=== PATIENT | female | born 1960 | race Caucasian/White ===

== ENCOUNTER 2022-11-19 10:15 | Outpatient (REF) | payer OTHER, SELFPAY ==
--- NOTE | ~2022-11-19 | XR_ITS ---
EXAMINATION: XR SACROILIAC JOINTS CLINICAL INFORMATION: Lumbar spondylosis without myelopathy or radiculopathy. COMPARISON: None available. TECHNIQUE: AP and bilateral Judet views of the sacroiliac joints FINDINGS: Bones and soft tissues are normal. No fracture. Alignment is anatomic. Sacroiliac joint spaces are well-maintained without erosions or surrounding sclerosis. XR/XR sacroiliac joint min 3V IMPRESSION: Normal sacroiliac joints.
--- NOTE | ~2022-11-19 | XR_ITS ---
EXAMINATION: XR LUMBOSACRAL SPINE WITH OBLIQUES CLINICAL INFORMATION: Lumbar spondylosis, without myelopathy or radiculopathy. COMPARISON: None available. TECHNIQUE: AP, both oblique, and lateral (neutral, flexion and extension) views of the lumbar spine. Lateral view of the lumbosacral junction. FINDINGS: There is bony demineralization. As a slight thoracolumbar dextroscoliosis. At L5-S1, there is moderate disc space narrowing, vacuum disc phenomenon and a 3 mm retrolisthesis. The remaining disc spaces are relatively well-maintained. No acute fracture or spondylolisthesis is seen. There is no significant instability with flexion or extension. There is facet arthropathy at L5-S1. No spondylolysis defect is seen on the oblique views. The paravertebral soft tissues are unremarkable. XR/XR lumbar spine 6V w bending IMPRESSION: 1. At L5-S1, there is moderately severe degenerative disc disease and facet arthropathy. 2. There is no instability with flexion or extension.
== END 2022-11-19 10:16 | disposition home or self-care (01) ==
LOC: HO.XRAY 10:15
PROVIDERS: PCP Nurse Practitioner Family; Visit Provider Nurse Practitioner Family
DX: M47.816 Spondylosis without myelopathy or radiculopathy, lumbar region (principal); M53.3 Sacrococcygeal disorders, not elsewhere classified
CPT/HCPCS: 72114; 72202; 99202

== ENCOUNTER 2022-12-04 06:09 | Outpatient (REF) | payer OTHER, SELFPAY ==
--- NOTE | ~2022-12-04 | FL_ITS ---
EXAMINATION: XR FLUOROSCOPY WITH IMAGES CLINICAL INFORMATION: Spondylosis without myelopathy or radiculopathy, lumbar region. COMPARISON: None available. TECHNIQUE: Fluoroscopy Supervised By: Dr. Elkisn. Fluoroscopy Time: 0.3 minutes. Cumulative Dose: 12.2 mGy. DAP: 1.77 Gycm2. Images: 5. FINDINGS: Images demonstrate needle placement and contrast injection adjacent to the bilateral lateral L3, L4 and L5 vertebral bodies. FL/FL guidance in treatment room IMPRESSION: Fluoroscopy guidance for pain management procedure.
== END 2022-12-04 06:10 | disposition home or self-care (01) ==
LOC: CF 06:09
PROVIDERS: Visit Provider Internal Medicine
DX: M47.816 Spondylosis without myelopathy or radiculopathy, lumbar region (principal)
CPT/HCPCS: 64493; 64494

== ENCOUNTER → 2022-12-09 15:42 | Outpatient (BNVA) | payer OTHER, SELFPAY | PROVIDERS: PCP Nurse Practitioner Family; Visit Provider Nurse Practitioner Family | DX: M47.816 Spondylosis without myelopathy or radiculopathy, lumbar region (principal); M53.3 Sacrococcygeal disorders, not elsewhere classified; M54.16 Radiculopathy, lumbar region | CPT/HCPCS: 99212 ==

== ENCOUNTER 2023-01-15 10:48 | Day surgery (SDC) | payer OTHER, SELFPAY ==
--- NOTE | ~2023-01-15 | FL_ITS ---
EXAMINATION: XR FLUOROSCOPY WITH IMAGES CLINICAL INFORMATION: Lumbar pain. COMPARISON: None available. TECHNIQUE: Fluoroscopy Supervised By: Dr. Aba Elkins. Fluoroscopy Time: 0.1. Cumulative Dose: 2.21 mGy. DAP: 0.175 Gycm2. Images: 1. FINDINGS: A single digital image obtained reveals a single electrode or wire overlying the L4 and L5 vertebra. Visualized bones are grossly unremarkable. FL/FL guidance in OR IMPRESSION: Fluoroscopy was provided to referring physician for pain management.
[2023-01-15 11:02] VITALS: BMI 29.2
[2023-01-15 11:11] VITALS: BP 138/69; PULSE 55; RESP 16; TEMP 36.5; O2SAT 96
[2023-01-15 13:16] VITALS: BP 139/68; PULSE 59; RESP 18; TEMP 36.5; O2SAT 100
--- NOTE | 2023-01-15 15:50 | MHC.SHP ---
Pre-Procedural Eval Section A Date of Service: 01/15/23 The patient is an INPATIENT: No Changes since office visit: Yes Patient answered all questions The History & Physical has been completed within 30 days and I have reviewed it.: Yes Section B Chief Complaint: Spondylosis without myelopathy or radiculopathy Relevant Family History (Specify if Yes): No Relevant Social History: None Present Medications: see Short Stay Collaborative assessment Medical History: No relevant PMH History of Previous Operations: No relevant previous surgery Allergies: Allergies Allergy/AdvReac Type Severity Reaction Status Date / Time No Known Allergies Allergy Mild NKA Verified 12/09/22 15:58 Review of Systems Sugical H&P ROS: Negative: Constitution, Cardiovascular and Respiratory Exam Surgical H&P Exam: Normal: HEENT, Normal: Heart and Normal: Lungs Plan Diagnosis/Plan: Unchanged I have reviewed the history and physical and performed a pertinent physical examination on my patient. No changes have occurred unless specified. Proceed with left L3 medial branch nerve stimulator placement. Time Spent With Patient Time: Total time managing care of this patient today ____ minutes.
--- NOTE | 2023-01-15 15:51 | PM.OP ---
Brief Operative Note Date of Service: 01/15/23 Pre-op diagnosis: Lumbar spondylosis, chronic intractable low back pain Post-op diagnosis: same Procedure: Temporary left L3 medial branch nerve stimulator placement Implants: Sprint temporary PNS system Surgeon: Aba Elkins MD Anesthesia: local Was an Oracle Technical Architect used for this Procedure?: No Estimated blood loss (mL): 1 Pathology: none sent Condition: stable Disposition: same day
--- NOTE | 2023-01-15 15:52 | W.PM.OPN ---
Operative Note Operative Note Date of Service: 01/15/23 Narrative: Lumbar Medial Branch Nerve Stimulation Lead Placement, SPR (Sprint) System, Left L3 ? After the risks, benefits and alternatives were discussed with the patient and informed consent was obtained, patient was placed in the prone position and padded to foster comfort. The skin overlying the lumbosacral spine was prepped and draped in sterile fashion. Fluoroscopy was used to identify the spinous process and lamina in the center of the patient?s region of pain. After identifying and marking the intended target along the course of the medial branch nerve, the skin around the planned entry point and the subcutaneous tissues were injected with lidocaine 1%. An introducer needle and stimulating probe were assembled, inserted and advanced along the intended course of the medial branch nerve as it traverses the lamina medial and inferior to the zygapophyseal joint, taking care to maintain the proper depth of insertion as the introducer is advanced under fluoroscopic guidance. The introducer needle was delivered to a location in proximity to the nerve. Multiple stimulation parameters were used to deliver stimulation to the target medial branch nerve in concert with stimulating at multiple positions around the nerve. Nerve target acquisition was confirmed noting generation of paresthesias in the paravertebral regions corresponding to the level being stimulated. Various electrical parameter combinations were tested, and the lead location was adjusted (physically relocated) until the patient indicated paresthesia/muscle tension overlapping the distribution of the patient?s typical region of pain. The stimulating probe was removed from the introducer and a percutaneous lead was guided through the needle and delivered to a location in similar proximity to the nerve. Final location was verified with electrical stimulation and documented with fluoroscopy. The introducer needle was removed, and the exposed end of the percutaneous lead was attached to an external stimulator unit. Various electrical parameter combinations were again tested until the patient indicated paresthesia or muscle tension overlapping the distribution of the patient?s typical region of pain. After confirming that lead impedance was in the normal range, the external unit was detached, the needle was removed, and the lead was anchored at the skin. The lead was threaded into the connector block and electrical continuity and desired patient response was confirmed. The connector block was attached to the external stimulator unit. The site was covered with a sterile occlusive dressing. The patient was observed for stability of vital signs and comfort.
== END 2023-01-15 13:21 | disposition home or self-care (01) ==
PROVIDERS: PCP Nurse Practitioner Family; Visit Provider Internal Medicine
PROC: (CPT 64555; principal; 2023-01-15 12:10)
DX: M47.26 Other spondylosis with radiculopathy, lumbar region (principal); M53.3 Sacrococcygeal disorders, not elsewhere classified
CPT/HCPCS: 64555; C1778

== ENCOUNTER → 2023-01-15 10:48 | Outpatient (BNV) | payer OTHER, SELFPAY | PROVIDERS: PCP Nurse Practitioner Family; Visit Provider Internal Medicine | DX: M47.816 Spondylosis without myelopathy or radiculopathy, lumbar region (principal) | CPT/HCPCS: 64555; 99499 ==

== ENCOUNTER → 2023-01-24 10:45 | Outpatient (BNVA) | payer OTHER, SELFPAY | PROVIDERS: PCP Nurse Practitioner Family; Visit Provider Internal Medicine ==

== ENCOUNTER 2023-02-06 08:49 | Outpatient (AMB) | payer OTHER, SELFPAY ==
--- NOTE | 2023-02-06 08:57 | MHC.OFFVIS ---
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 Elkins. Lead site clean, dry, intact, no pathological discharge. Dressing change done today in clinic. Pain today 09/06. She is scheduled to undergo right side Sprint lead placement on 03/05/23 and reports since left side was done, her right sided back pain has been feeling partially better as well. Denies any recent cough, cold, infection, fever or other significant changes in medical history since last office visit. Patient denies any bladder or bowel incontinence or saddle anesthesia. Past Procedures: 01/15/23: Left L3 MB Sprint lead [id number] pain relief at 60 with positive paresthesia 12/04/22: Bilateral Diagnostic L3-L4-L5 [id number]% pain relief for 24 hours PRIOR: Patient is a very pleasant 62-year-old presents today for initial evaluation of chronic low back pain extending into posterior bilateral lower extremity. Denies any recent trauma, injury, or falls. Patient reports pain initiated upon waking up on and 2018 with right-sided sciatica and over a year she also developed left-sided sciatica pain. Patient was followed at [facility] for the last 3 years and has undergone multiple injections for back and hip pain with minimal and temporary pain relief. She was deemed a good candidate for a spinal cord stimulator however per referral notes, her thoracic spine MRI revealed a thoracic canal is too narrow to accommodate the lead wires. Therefore she is no longer considered a candidate for a spinal cord stimulator trial. Patient has failed multiple modes of conservative management at the [facility] including physical therapy, injections, medications, acupuncture and massage. Patient reports she was also had [place] [facility] [place] was deemed non-surgical. She was referred to us for potential peripheral nerve stimulation for her ongoing symptoms. Currently, she takes gabapentin and duloxetine which both are ineffective to her. Pain continues to affect her daily ADLs, functioning, mobility, sleep, mood and quality of life. She ambulates with mildly antalgic gait without limping and does not use any assistive devices. Denies any fever, abdominal or groin pain, bladder or bowel incontinence, or saddle anesthesia. Location Low back pain, bilateral sciatica, bilateral hip and GTB Duration Chronic pain since 2019 Characteristics of symptom or complaint Throbbing, pulsing, sharp, tugging, burning, tiring, radiating, tight Aggravating or associated factors Bending, pulling lifting, walking, sitting, standing Relieving factors Tylenol, oxycodone, TENS unit, massage Treatment PT, acupuncture, nerve blocks and epidurals at [facility] Medical History Fibromyalgia Intussusception intestine Kidney stone Seizure Surgical History H/O myomectomy H/O partial thyroidectomy H/O: hysterectomy Social History Patient Tobacco Use Status: Former Tobacco user Substance Use Type: Marijuana Review of Systems Const All systems reviewed & are unremarkable except as noted in HPI and below Physical Exam Vital Signs: Last Vital Signs Pulse 54 02/06/23 09:08 BP 119/68 02/06/23 09:08 Pulse Ox 97 02/06/23 09:08 Oxygen Delivery Method Room Air 02/06/23 09:08 BMI result Body Mass Index 29.2 General: Appears afebrile. Alert and oriented. Mood and affect appropriate. Follows and participates in conversation appropriately. Respiratory effort is unlabored. No cough. No nasal discharge. Able to transition from sit to stand unassisted. Ambulates with bilaterally normal heel strike and toe off. Back/Spine/Pelvis Other: Lead Insertion Site: Positive paresthesia around left lower back at 60. Lead insertion site is clean, dry and intact. Dressing change today. Results Reviewed Results Reviewed: XR SACROILIAC JOINTS 11/19/22 TECHNIQUE: AP and bilateral Judet views of the sacroiliac joints FINDINGS: Bones and soft tissues are normal. No fracture. Alignment is anatomic. Sacroiliac joint spaces are well-maintained without erosions or surrounding sclerosis. IMPRESSION: Normal sacroiliac joints. XR LUMBOSACRAL SPINE WITH OBLIQUES 11/19/22 FINDINGS: There is bony demineralization. As a slight thoracolumbar dextroscoliosis. At L5-S1, there is moderate disc space narrowing, vacuum disc phenomenon and a 3 mm retrolisthesis. The remaining disc spaces are relatively well-maintained. No acute fracture or spondylolisthesis is seen. There is no significant instability with flexion or extension. There is facet arthropathy at L5-S1. No spondylolysis defect is seen on the oblique views. The paravertebral soft tissues are unremarkable. IMPRESSION: 1. At L5-S1, there is moderately severe degenerative disc disease and facet arthropathy. 2. There is no instability with flexion or extension. Assessment & Plan Assessment & Plan (1) Lumbar spondylosis: Code(s): M47.816 - Spondylosis without myelopathy or radiculopathy, lumbar region (2) Sacroiliac joint pain: Code(s): M53.3 - Sacrococcygeal disorders, not elsewhere classified Plan Patient is status post Left L3 Sprint PNS for low back pain with good results at 60 stimulation with positive paresthesia on left low back. Patient will continue to slowly increase stimulation as tolerated and monitor pain relief. Dressing was changed in the clinic today. Proceed with Right L3 Medial Branch Nerve Stimulation Lead Placement, Sprint system as scheduled. All questions were answered and the patient agreed with the plan. Follow up as needed. Coding Level of Care Code Est Pt Level 3 (26303) Diagnoses Lumbar spondylosis M47.816 Sacroiliac joint pain M53.3
[2023-02-06 09:08] VITALS: BP 119/68; PULSE 54; O2SAT 97; BMI 29.2
== END 2023-02-06 09:21 | disposition home or self-care (01) ==
PROVIDERS: PCP Nurse Practitioner Family; Visit Provider Nurse Practitioner Family
DX: M47.816 Spondylosis without myelopathy or radiculopathy, lumbar region (principal); M53.3 Sacrococcygeal disorders, not elsewhere classified; Z96.82 Presence of neurostimulator
CPT/HCPCS: 99213

== ENCOUNTER → 2023-02-06 08:49 | Outpatient (BNVA) | payer OTHER, SELFPAY | PROVIDERS: PCP Nurse Practitioner Family; Visit Provider Nurse Practitioner Family ==

== ENCOUNTER 2023-03-05 09:20 | Day surgery (SDC) | payer OTHER, SELFPAY ==
--- NOTE | ~2023-03-05 | FL_ITS ---
EXAMINATION: XR FLUOROSCOPY WITH IMAGES CLINICAL INFORMATION: Right lumbar medial branch block COMPARISON: 01/15/2023 TECHNIQUE: Fluoroscopy Supervised By: Dr. Aba Elkins. Fluoroscopy Time: 0.1 minutes. Cumulative Dose: 2.1 mGy. DAP: 0.0170 Gycm2. Images: 4. FINDINGS: A radiopaque needle projects along the right aspect of the lumbar spine. Projects posteriorly. There is a second needle more inferiorly on the left. FL/FL guidance in OR IMPRESSION: Fluoroscopic guidance for right lumbar medial branch block.
[2023-03-05 09:39] VITALS: BMI 29.2
[2023-03-05 09:45] VITALS: BP 113/62; PULSE 66; RESP 16; TEMP 36.8; O2SAT 97
--- NOTE | 2023-03-05 11:21 | MHC.SHP ---
Pre-Procedural Eval Section A Date of Service: 03/05/23 The patient is an INPATIENT: No Changes since office visit: Yes Patient answered all questions The History & Physical has been completed within 30 days and I have reviewed it.: No Section B Chief Complaint: Intractable back pain Relevant Family History (Specify if Yes): No Relevant Social History: None Present Medications: see Short Stay Collaborative assessment Medical History: No relevant PMH History of Previous Operations: No relevant previous surgery Allergies: Allergies Allergy/AdvReac Type Severity Reaction Status Date / Time No Known Allergies Allergy Mild NKA Verified 03/05/23 09:38 Review of Systems Sugical H&P ROS: Negative: Constitution, Cardiovascular and Respiratory Exam Surgical H&P Exam: Normal: HEENT, Normal: Heart and Normal: Lungs Plan Diagnosis/Plan: Unchanged I have reviewed the history and physical and performed a pertinent physical examination on my patient. No changes have occurred unless specified. Proceed with right L3 vs. L4 vs. L5 MB nerve PNS placement. Time Spent With Patient Time: Total time managing care of this patient today ____ minutes.
[2023-03-05 12:00] VITALS: BP 119/64; PULSE 58; RESP 16; TEMP 36.3; O2SAT 98
--- NOTE | 2023-03-05 12:11 | PM.OP ---
Brief Operative Note Date of Service: 03/05/23 Pre-op diagnosis: Chronic intractable pain, lumbar spondylosis Post-op diagnosis: same Procedure: Temporary right L3 medial branch nerve stimulator placement Implants: Sprint temporary PNS system Surgeon: Aba Elkins MD Anesthesia: local Was an Motor Equipment Commanding Officer used for this Procedure?: No Estimated blood loss (mL): 1 Pathology: none sent Condition: stable Disposition: same day
[2023-03-05] MEDS: oxyCODONE HCl Immed Release 5 MG TABLET PO (12:14)
--- NOTE | 2023-03-05 12:14 | W.PM.OPN ---
Operative Note Operative Note Date of Service: 03/05/23 Narrative: Lumbar Medial Branch Nerve Stimulation Lead Placement, SPR (Sprint) System, Right L3 ? After the risks, benefits and alternatives were discussed with the patient and informed consent was obtained, patient was placed in the prone position and padded to foster comfort. The skin overlying the lumbosacral spine was prepped and draped in sterile fashion. Fluoroscopy was used to identify the spinous process and lamina in the center of the patient?s region of pain. After identifying and marking the intended target along the course of the medial branch nerve, the skin around the planned entry point and the subcutaneous tissues were injected with lidocaine 1%. An introducer needle and stimulating probe were assembled, inserted and advanced along the intended course of the medial branch nerve as it traverses the lamina medial and inferior to the zygapophyseal joint, taking care to maintain the proper depth of insertion as the introducer is advanced under fluoroscopic guidance. The introducer needle was delivered to a location in proximity to the nerve. Multiple stimulation parameters were used to deliver stimulation to the target medial branch nerve in concert with stimulating at multiple positions around the nerve. Nerve target acquisition was confirmed noting generation of paresthesias in the paravertebral regions corresponding to the level being stimulated. Various electrical parameter combinations were tested, and the lead location was adjusted (physically relocated) until the patient indicated paresthesia/muscle tension overlapping the distribution of the patient?s typical region of pain. The stimulating probe was removed from the introducer and a percutaneous lead was guided through the needle and delivered to a location in similar proximity to the nerve. Final location was verified with electrical stimulation and documented with fluoroscopy. The introducer needle was removed, and the exposed end of the percutaneous lead was attached to an external stimulator unit. Various electrical parameter combinations were again tested until the patient indicated paresthesia or muscle tension overlapping the distribution of the patient?s typical region of pain. After confirming that lead impedance was in the normal range, the external unit was detached, the needle was removed, and the lead was anchored at the skin. The lead was threaded into the connector block and electrical continuity and desired patient response was confirmed. The connector block was attached to the external stimulator unit. The site was covered with a sterile occlusive dressing. The patient was observed for stability of vital signs and comfort.
== END 2023-03-05 12:19 | disposition home or self-care (01) ==
PROVIDERS: PCP Nurse Practitioner Family; Visit Provider Internal Medicine
PROC: (CPT 64555; principal; 2023-03-05 10:40)
DX: M47.816 Spondylosis without myelopathy or radiculopathy, lumbar region (principal); G89.29 Other chronic pain; M54.50 Low back pain, unspecified; M79.7 Fibromyalgia; Z87.891 Personal history of nicotine dependence; F12.90 Cannabis use, unspecified, uncomplicated; M53.3 Sacrococcygeal disorders, not elsewhere classified
CPT/HCPCS: 64555; C1778

== ENCOUNTER → 2023-03-05 09:20 | Outpatient (BNV) | payer OTHER, SELFPAY | PROVIDERS: PCP Nurse Practitioner Family; Visit Provider Internal Medicine | DX: M54.16 Radiculopathy, lumbar region (principal) | CPT/HCPCS: 64555 ==

== ENCOUNTER 2023-03-11 09:18 | Outpatient (AMB) | payer OTHER, SELFPAY ==
--- NOTE | 2023-03-11 09:21 | A.OFFVIS_ITS ---
Intake Vital Signs 03/11/23 09:27 Height 5 ft 4 in Weight 168 lb 3 oz BMI 28.9 BP 121/58 L Blood Pressure Location Lt brachial Position Sitting Pulse 59 Pulse Source Pulse Oximeter Pulse Oximetry (%) 98 Oxygen Delivery Method Room Air Intake Visit Reasons: s/p Right L5 MB Sprint Intake Note: Pain today 12/07. Fabric Inspector Required: No Accompanied by: Self / Same As Patient Allergies No Known Allergies Allergy (Mild, Verified 03/11/23 09:28) NKA HPI HPI Comments History of Present Illness Details Patient presents today to assess response to Right L3 Medial Branch Nerve Stimulation Lead Sprint Placement on 03/05/[address] Elkins. Lead site clean, dry, intact, no pathological discharge. There is mild redness noted in le ad insertion point. No significant amount of percutaneous lead as most of lead is internal and attached to an external stimulator unit. Dressings change done today in clinic. Patient reports about 40-50% pain relief on the right side and 65-70% ongoing pain relief for left side. Patient reports no paresthesia or muscle tension on right side at 35, but reported paresthesia upon slowly increasing stimulation to 39. Patient will continue to slowly increase stimulation for right side over the next week as tolerated. She states improved mobility, functioning, sleep and ability to climb stairs or change position without significant pain/ Denies any recent cough, cold, infection, fever or other significant changes in medical history since last office visit. Patient denies any bladder or bowel incontinence or saddle anesthesia. Past Procedures: 03/05/23: Right L3 MB Sprint lead placem ent-40-50% pain relief at 35 with no paresthesia, increased to 39 +paresthesia 01/15/23: Left L3 MB Sprint lead placeme nt-70-80% pain relief at 60 with positive paresthesia 12/04/22: Bilateral Diagnostic L3-L4-L5 MBB-100% pain relief for 24 hours PRIOR: Patient is a very pleasant 62-year-old presents today for initial evaluation of chronic low back pain extending into posterior bilateral lower extremity. Denies any recent trauma, injury, or falls. Patient reports pain initiated upon waking up on [place] and 2018 with right-sided sciatica and over a year she also developed left-sided sciatica pain. Patient was followed at [facility] for the last 3 years and has undergone multiple injections for back and hip pain with minimal and temporary pain relief. She was deemed a good candidate for a spinal cord stimulator however per referral notes, her thoracic spine MRI r evealed a thoracic canal is too narrow to accommodate the lead wires. Therefore she is no longer considered a candidate for a spinal cord stimulator trial. Patient has failed multiple modes of conservative management at the [facility] including physical therapy, injections, medications, acupuncture and massage. Patient reports she was also had [place] [facility] [place] was deemed non-[place]. She was referred to us for potential peripheral nerve stimulation for her ongoing symptoms. Currently, she takes gabapentin and duloxetine which both are ineffective to her. Pain continues to affect her daily ADLs, functioning, mobility, sleep, mood and quality of life. She ambulates with mildly antalgic gait without limping and does not use any assistive devices. Denies any fever, abdominal or groin pain, bladder or bowel incontinence, or saddle anesthesia. Location Low back pain, bilateral sciatica, bilateral hip and GTB Duration Chronic pain since 2019 Characteristics of symptom or complaint Throbbing, pulsing, sharp, tugging, burning, tiring, radiating, tight Aggravating or associated factors Bending, pulling lifting, walking, sitting, standing Relieving factors Tylenol, oxycodone, TENS unit, massage Treatment PT, acupuncture, nerve blocks and epidurals at [facility] Medical History Hypertension Kidney stone Intussusception intestine Seizure Fibromyalgia Surgical History S/P placement of nerve stimulator H/O carpal tunnel repair H/O partial thyroidectomy H/O myomectomy H/O: hysterectomy Social History Patient Tobacco Use Status: Former Tobacco user Substance Use Type: Marijuana Review of Systems Const All systems reviewed & are unremarkable except as noted in HPI and below Physical Exam General: Appears afebrile. Alert and oriented. Mood and affect appropriate. Follows and participates in conversation appropriately. Respiratory effort is unlabored. No cough. Able to transition from sit to stand unassisted. Ambulates with bilaterally normal heel strike and toe off. Back/Spine/Pelvis Other: Lead Insertion Site: Positive paresthesia around left lower back at 70, no paresthesia for right lower back at 35-increased to 39 positive paresthesia. Lead insertion sitesis clean, dry and intact. Mild redness noted on right lead insertion. Bacitracin applied. Dressings change done today in clinic. Assessment & Plan Assessment & Plan (1) Lumbar spondylosis: Code(s): M47.816 - Spondylosis without myelopathy or radiculopathy, lumbar region (2) Sacroiliac joint pain: Code(s): M53.3 - Sacrococcygeal disorders, not elsewhere classified Plan Patient is status post Right L3 Sprint PNS for low back pain with sufficient results so far. We increased to 39 stimulation to obtain positive paresthesia for right low back. Patient will continue to slowly increase stimulation as tolerated and monitor pain relief. Dressings were changed in the clinic today. All questions and concerns have been answered and patient agreed with the plan. Follow up for Left Sprint removal and sooner as needed. Coding Level of Care Code Est Pt Level 4 (21891) Diagnoses Lumbar spondylosis M47.816 Sacroiliac joint pain M53.3
[2023-03-11 09:27] VITALS: BP 121/58; PULSE 59; O2SAT 98; BMI 28.9
== END 2023-03-11 09:52 | disposition home or self-care (01) ==
PROVIDERS: PCP Nurse Practitioner Family; Visit Provider Nurse Practitioner Family
DX: M47.816 Spondylosis without myelopathy or radiculopathy, lumbar region (principal); M53.3 Sacrococcygeal disorders, not elsewhere classified
CPT/HCPCS: 99024

== ENCOUNTER → 2023-03-11 09:18 | Outpatient (BNVA) | payer OTHER, SELFPAY | PROVIDERS: PCP Nurse Practitioner Family; Visit Provider Nurse Practitioner Family ==

== ENCOUNTER 2023-03-14 09:05 | Outpatient (AMB) | payer OTHER, SELFPAY ==
--- NOTE | 2023-03-14 09:08 | A.OFFVIS_ITS ---
Intake Vital Signs 03/14/23 09:09 Height 5 ft 4 in Weight 174 lb BMI 29.9 BP 110/64 Blood Pressure Location Rt brachial Position Sitting Respiration 14 Pulse 66 Pulse Source Pulse Oximeter Pulse Oximetry (%) 98 Oxygen Delivery Method Room Air Intake Visit Reasons: Left side Sprint removal Allergies No Known Allergies Allergy (Mild, Verified 03/14/23 09:09) NKA Medication List - Last Reconciled 03/14/23 by Heather Centeno LPN bupropion HCl 150 mg PO QAM duloxetine 30 mg PO BID fluoride (sodium) 1.1% appl PO gabapentin 300 mg PO TID levothyroxine 75 mcg PO DAILY lisinopril-hydrochlorothiazide 20-25 mg 1 tab PO DAILY lorazepam 1 mg PO TID metformin 250 mg PO BID propranolol ER 120 mg PO DAILY simvastatin 10 mg PO BEDTIME trazodone 50 mg PO BEDTIME HPI Left side Sprint removal HPI Details 63-year-old female who presents today to the office for a left side sprint removal. The patient has mild pain on the left side. She is able to stand and walk without pain. She has difficulty bending. The dressing got wet this morning during the shower. She reports pain and tightness around the incision site and around the device. She states that it was tender to touch on the left side. Her last MRI was performed at [facility] in [place] which showed Modic changes at the lower L5-S1 level. She does have a disc herniation of the L5-S1 disc with [id number] foraminal stenosis on each side. She was diagnosed with sciatica about five years ago. She states that her pain kept worsening over time. She has difficulty with ambulation. She has had epidural steroid injections in her back and hips in the past without much effect. Past Procedures: 03/05/23: Right L3 MB Sprint lead placem ent-40-50% pain relief at 35 with no paresthesia, increased to 39 +paresthesia 01/15/23: Left L3 MB Sprint lead placeme nt-70-80% pain relief at 60 with posit ilene paresthesia 12/04/22: Bilateral Diagnostic L3-L4-L5 MBB-100% pain relief for 24 hours. [facility] Medical History Hypertension Kidney stone Intussusception intestine Seizure Fibromyalgia Surgical History S/P placement of nerve stimulator H/O carpal tunnel repair H/O partial thyroidectomy H/O myomectomy H/O: hysterectomy Social History Patient Tobacco Use Status: Former Tobacco user Substance Use Type: Marijuana Review of Systems Const All systems reviewed & are unremarkable except as noted in HPI and below Physical Exam Vital Signs: Last Vital Signs Pulse 66 03/14/23 09:09 Resp 14 03/14/23 09:09 BP 110/64 03/14/23 09:09 Pulse Ox 98 03/14/23 09:09 Oxygen Delivery Method Room Air 03/14/23 09:09 BMI result Body Mass Index 29.9 General: Appears afebrile. Alert and oriented. Mood and affect appropriate. Follows and participates in conversation appropriately. Respiratory effort is unlabored. Able to transition from sit to stand unassisted. Ambulates with bilaterally normal heel strike and toe off. Lead removed with tip intact. Results Reviewed Results Reviewed: No imaging is available for review. Assessment & Plan Assessment & Plan (1) Lumbar radiculopathy: Code(s): M54.16 - Radiculopathy, lumbar region (2) Lumbar spondylosis: Code(s): M47.816 - Spondylosis without myelopathy or radiculopathy, lumbar region (3) Vertebrogenic low back pain: Code(s): M54.51 - Vertebrogenic low back pain Plan The left Sprint lead was removed today in the office. The patient will follow up for the right side removal in due time. For back pain, she may be a candidate for BVN ablation in the future for vertebrogenic pain, or repeat epidural steroid injections for foraminal stenosis at the L5-S1 level. I recommended that she keep an eye on whether her back or her leg pain is more bothersome going forward for us to decide which modality has a higher likelihood of being helpful. Scribed for Dr. Elkins by Frankie Beal, family practice medical doctor, on 03/14/2023. I, Dr. Elkins, have personally reviewed and agree with the information entered by the scribe. Coding Level of Care Code Est Pt Level 3 (68103) Diagnoses Lumbar radiculopathy M54.16 Lumbar spondylosis M47.816 Vertebrogenic low back pain M54.51
[2023-03-14 09:09] VITALS: BP 110/64; PULSE 66; RESP 14; O2SAT 98; BMI 29.9
== END 2023-03-14 09:45 | disposition home or self-care (01) ==
PROVIDERS: PCP Nurse Practitioner Family; Visit Provider Internal Medicine
DX: M54.16 Radiculopathy, lumbar region (principal); M47.816 Spondylosis without myelopathy or radiculopathy, lumbar region; M54.51 Vertebrogenic low back pain
CPT/HCPCS: 99024

== ENCOUNTER → 2023-03-14 09:05 | Outpatient (BNVA) | payer OTHER, SELFPAY | PROVIDERS: PCP Nurse Practitioner Family; Visit Provider Internal Medicine | DX: M47.26 Other spondylosis with radiculopathy, lumbar region (principal); M54.51 Vertebrogenic low back pain | CPT/HCPCS: 99212 ==

== ENCOUNTER → 2023-03-24 10:41 | Outpatient (BNVA) | payer OTHER, SELFPAY | PROVIDERS: PCP Nurse Practitioner Family; Visit Provider Internal Medicine | DX: Z48.89 Encounter for other specified surgical aftercare (principal) | CPT/HCPCS: 99211 ==

== ENCOUNTER 2023-04-23 06:05 | Outpatient (REF) | payer OTHER, SELFPAY ==
--- NOTE | ~2023-04-23 | FL_ITS ---
EXAMINATION: XR FLUOROSCOPY WITH IMAGES CLINICAL INFORMATION: Vertebrogenic low back pain. COMPARISON: None available. TECHNIQUE: Fluoroscopy Supervised By: Dr. Aba Elkins. Fluoroscopy Time: 15.1 seconds. Cumulative Dose: 2.8051 mGy. DAP: 0.3187 Gycm2. Images: 2. FINDINGS: Images demonstrate needle placement and contrast injection adjacent to the right L4-L5 vertebrae FL/FL guidance in treatment room IMPRESSION: Fluoroscopic guidance for pain management procedure.
== END 2023-04-23 06:06 | disposition home or self-care (01) ==
LOC: CF 06:05
PROVIDERS: Visit Provider Internal Medicine
DX: M54.51 Vertebrogenic low back pain (principal); M54.16 Radiculopathy, lumbar region
CPT/HCPCS: 62323; J1040; Q9967

== ENCOUNTER 2023-04-23 08:18 | Outpatient (AMB) | payer OTHER, SELFPAY ==
[2023-04-23 08:37] VITALS: BP 110/60; PULSE 67; RESP 14; O2SAT 96
--- NOTE | 2023-04-23 08:37 | MHC.OFFVIS ---
Intake Vital Signs 04/23/23 08:37 04/23/23 09:17 BP 110/60 130/70 Blood Pressure Location Lt brachial Rt brachial Position Sitting Sitting Respiration 14 14 Pulse 67 63 Pulse Source Pulse Oximeter Pulse Oximetry (%) 96 98 Oxygen Delivery Method Room Air Room Air Intake Visit Reasons: Right parasagittal interlaminar L5-S1 SHAHLA Allergies No Known Allergies Allergy (Mild, Verified 04/23/23 08:37) NKA HPI Right parasagittal interlaminar L5-S1 SHAHLA HPI Details Patient presents for scheduled procedure. Denies any recent cough, cold, infection, fever or other significant changes in medical history since last office visit. PFSH Medical History Hypertension Kidney stone Intussusception intestine Seizure Fibromyalgia Surgical History S/P placement of nerve stimulator H/O carpal tunnel repair H/O partial thyroidectomy H/O myomectomy H/O: hysterectomy Social History Patient Tobacco Use Status: Former Tobacco user Substance Use Type: Marijuana Physical Exam Vital Signs: Last Vital Signs Pulse 67 04/23/23 08:37 Resp 14 04/23/23 08:37 BP 110/60 04/23/23 08:37 Pulse Ox 96 04/23/23 08:37 Oxygen Delivery Method Room Air 04/23/23 08:37 Office Procedures Joint Injection/Drain Joint Injection/Drain Details: Interlaminar epidural steroid injection, L5/S1, Right parasaggital After obtaining written consent, pre-procedure blood pressure and heart rate were stable and recorded in the nursing record. The patient was placed in the prone position. The lumbosacral area was widely prepped with chloraprep and draped in sterile fashion. Fluoroscopic guidance was used to identify the desired interlaminar space and for needle placement. Subcutaneous 0.5% lidocaine was used to anesthetize the skin overlying the target. A 20-gauge Mckoy needle was advanced to the epidural space using loss of resistance to contrast technique under fluoroscopic AP and contralateral oblique views. Suboptimal contrast spread was seen on the first instance raising the possibility of a dural puncture. The needle was withdrawn and advanced again using DUARTE to saline. This time, there was no evidence of heme or CSF and no paresthesias were elicited with needle placement. Confirmation of epidural needle placement was performed with 1cc of omnipaque 180. Next 3 ml 0.5% lidocaine mixed with 80 mg methylprednisolone was administered epidurally with no pain elicited on injection. The needle tract tubing was then cleared with restyletting the needle. The needle was removed, skin cleansed and a sterile bandage was applied. The patient tolerated the procedure well and no complications were encountered. Following the procedure the patient's vital signs were stable. The patient was discharged home in good condition with post-procedural instructions. Time Out: Immediately prior to the procedure, the following was verbally confirmed that there is a signed consent form and that the correct patient, planned procedure, site and side are consistent with documentation and that necessary equipment and/or blood products are available prior to the start of the case. Complications: none EBL: <5 cc Coding 60026 - Caudal/Lumbar Epidural/Interlaminar with fluoroscopy Procedure code (CPT) selection complete Assessment & Plan Assessment & Plan (1) Lumbar radiculopathy: Code(s): M54.16 - Radiculopathy, lumbar region Plan Patient is status post right parasagittal L5/S1 interlaminar SHAHLA. Patient tolerated procedure well and was discharged home in stable condition with discharge instructions. All questions were answered. We will follow-up via telephone or in clinic to assess response to therapy. A follow-up appointment was made during today's visit. Orders: Orders FL guidance in treatment room Today M54.51 - Vertebrogenic low back pain Coding Level of Care Code Procedure Only Diagnoses Lumbar radiculopathy M54.16 CPT Codes Coding - Joint 11: 07837 - Caudal/Lumbar Epidural/Interlaminar with fluoroscopy ([id number])
[2023-04-23 09:17] VITALS: BP 130/70; PULSE 63; RESP 14; O2SAT 98
== END 2023-04-23 09:17 | disposition home or self-care (01) ==
LOC: HO.PMCPRC 08:18
PROVIDERS: PCP Nurse Practitioner Family; Visit Provider Internal Medicine
DX: M54.16 Radiculopathy, lumbar region (principal)
CPT/HCPCS: 62323

== ENCOUNTER 2023-05-26 08:40 | Outpatient (AMB) | payer OTHER, SELFPAY ==
--- NOTE | 2023-05-26 08:48 | A.OFFVIS_ITS ---
Intake Vital Signs 05/26/23 08:50 Height 5 ft 4 in Weight 174 lb BMI 29.9 Blood Pressure Location Lt brachial Position Sitting Respiration 12 Pulse Source Pulse Oximeter Intake Visit Reasons: s/p Right parasagittal interlaminar L5-S1 SHAHLA/conf Allergies carbamazepine [From Tegretol] Adverse Reaction (Intermediate, Verified 05/26/23 08:51) Itching Medication List - Last Reconciled 05/26/23 by Heather Centeno LPN bupropion HCl 300 mg PO QAM duloxetine 30 mg PO BID fluoride (sodium) 1.1% appl PO levothyroxine 75 mcg PO DAILY lisinopril-hydrochlorothiazide 20-25 mg 1 tab PO DAILY lorazepam 1 mg PO TID metformin 250 mg PO BID propranolol ER 120 mg PO DAILY simvastatin 10 mg PO BEDTIME trazodone 50 mg PO BEDTIME HPI s/p Right parasagittal interlaminar L5-S1 SHAHLA/conf HPI Details 63-year-old female who presents today to the office for a status post right parasagittal interlaminar L5-S1 SHAHLA. The patient reports >75% relief following the procedure for her right leg symptoms. She continues to endorse back pain. She has significantly improved on the right side, where originally her pain was localized, but her left side is worse. She has difficulty walking, and she reports a burning sensation in her legs. Her pain radiates from the rear end down to her leg. Her leg pain was significantly improved for three weeks post-procedure, but then it started returning to baseline. Her last round of physical therapy was about a year and a half ago. She has tightness in her neck. She has difficulty looking up or down. She suspects that her symptoms are secondary to neuropathy. She is taking levothyroxine for hypothyroidism. No history of diabetes. She had tried acupuncture and foot massages in the past. Past procedures: 04/23/23: Interlaminar epidural steroid injection, L5/S1, Right parasaggital : 75% relief of right leg symptoms. 03/05/23: Right L3 MB Sprint lead placem ent-40-50% pain relief at 35 with no paresthesia, increased to 39 +paresthesia 01/15/23: Left L3 MB Sprint lead placeme nt-70-80% pain relief at 60 with positive paresthesia 12/04/22: Bilateral Diagnostic L3-L4-L5 MBB-100% pain relief for 24 hours. [facility] Medical History Hypertension Kidney stone Intussusception intestine Seizure Fibromyalgia Surgical History S/P placement of nerve stimulator H/O carpal tunnel repair H/O partial thyroidectomy H/O myomectomy H/O: hysterectomy Social History Patient Tobacco Use Status: Former Tobacco user Substance Use Type: Marijuana Review of Systems Const All systems reviewed & are unremarkable except as noted in HPI and below Physical Exam Vital Signs: Last Vital Signs Resp 12 05/26/23 08:50 BMI result Body Mass Index 29.9 General: Appears afebrile. Alert and oriented. Mood and affect appropriate. Follows and participates in conversation appropriately. Respiratory effort is unlabored. Able to transition from sit to stand unassisted. Ambulates with bilaterally normal heel strike and toe off. Lumbar range of motion reproduces pain. Results Reviewed Results Reviewed: MRI images reviewed again. Notable for Modic changes on inferior L5 and superior S1 vertebral endplates Assessment & Plan Assessment & Plan (1) Lumbar radiculopathy: Code(s): M54.16 - Radiculopathy, lumbar region (2) Lumbar spondylosis: Code(s): M47.816 - Spondylosis without myelopathy or radiculopathy, lumbar region Plan A referral was provided to physical therapy for core strengthening and radicular pain on the left lower extremity. The patient will receive a call to schedule an appointment. A script was also provided to the patient for physical therapy. I also ordered an EMG test for further evaluation to rule out any causes of peripheral neuropathy that might be leading to her symptoms in the lower extremities. Discussed vertebrogenic pain with endplate degeneration and inferior L5 and superior S1 end plates. We discussed the intercept procedure as a treatment option, so we will start the process of getting approval. Scribed for Dr. Elkins by Frankie Beal, medical insurance claims processor, on 05/26/2023. I, Dr. Elkins, have personally reviewed and agree with the information entered by the scribe. Orders: Orders PT Evaluation and Treatment 05/26/23 M47.816 - Spondylosis without myelopathy or radiculopathy, lumbar region, M54.16 - Radiculopathy, lumbar region NE electromyogram (EMG) 05/26/23 M54.16 - Radiculopathy, lumbar region Coding Level of Care Code Est Pt Level 4 (38642) Diagnoses Lumbar radiculopathy M54.16 Lumbar spondylosis M47.816
[2023-05-26 08:50] VITALS: RESP 12; BMI 29.9
== END 2023-05-26 09:22 | disposition home or self-care (01) ==
PROVIDERS: PCP Nurse Practitioner Family; Visit Provider Internal Medicine
DX: M54.16 Radiculopathy, lumbar region (principal); M47.816 Spondylosis without myelopathy or radiculopathy, lumbar region
CPT/HCPCS: 99214

== ENCOUNTER → 2023-05-26 08:40 | Outpatient (BNVA) | payer OTHER, SELFPAY | PROVIDERS: PCP Nurse Practitioner Family; Visit Provider Internal Medicine ==

== ENCOUNTER 2023-07-11 08:16 | Outpatient (REF) | payer OTHER, SELFPAY ==
--- NOTE | 2023-07-11 08:19 | EMG_ITS ---
Chief complaint: Chronic back pain, endorses claudication symptoms with walking Reason for referral: Evaluate for neuropathy Referred by: Dr. Elkins Procedure done: Bilateral lower extremity NCS/EMG Precautions and/or limitations: History of peripheral nerve stimulator lead placement The limb temperature was monitored continuously and remained between 32-36 degrees C during the performance of the NCS. Nerve Conduction Studies Anti Sensory Summary Table ?Stim Site NR Onset (ms) Norm Onset (ms) Peak (ms) Norm Peak (ms) O-P Amp (?V) Norm O-P Amp Site1 Site2 Delta-0 (ms) Dist (cm) Angel (m/s) Norm Angel (m/s) Left Sural Anti Sensory (Lat Mall) Calf ? 2.8 4.0 <4.0 12.9 >5.0 Calf Lat Mall 2.8 14.0 50 Right Sural Anti Sensory (Lat Mall) Calf ? 3.3 4.0 <4.0 9.3 >5.0 Calf Lat Mall 3.3 14.0 42 Motor Summary Table ?Stim Site NR Onset (ms) Norm Onset (ms) O-P Amp (mV) Norm O-P Amp iAmp (mV) Amp (1st) (%) Site1 Site2 Delta-0 (ms) Dist (cm) Angel (m/s) Norm Angel (m/s) Left Peroneal Motor (Ext Dig Brev) Ankle ? 3.7 <4.0 7.5 >2.5 9.4 100.0 Ankle Ext Dig Brev 3.7 0.0 B Fib ? 11.0 7.1 8.5 94.7 B Fib Ankle 7.3 32.5 45 >40 Poplt ? 12.0 7.3 9.3 97.3 Poplt B Fib 1.0 5.0 50 >40 Right Peroneal Motor (Ext Dig Brev) Ankle ? 3.6 <4.0 7.5 >2.5 8.4 100.0 Ankle Ext Dig Brev 3.6 0.0 B Fib ? 10.5 6.9 7.9 92.0 B Fib Ankle 6.9 33.5 49 >40 Poplt ? 11.5 6.7 7.8 89.3 Poplt B Fib 1.0 5.0 50 >40 Left Tibial Motor (Abd Saravia Brev) Ankle ? 3.8 <5 14.6 >2.5 20.4 100.0 Ankle Abd Saravia Brev 3.8 0.0 Knee ? 12.7 7.4 11.2 50.7 Knee Ankle 8.9 37.5 42 >40 Right Tibial Motor (Abd Saravia Brev) Ankle ? 4.0 <5 10.7 >2.5 15.1 100.0 Ankle Abd Saravia Brev 4.0 0.0 Knee ? 12.6 4.5 6.6 42.1 Knee Ankle 8.6 38.0 44 >40 EMG ?Side Muscle Nerve Root Ins Act Fibs Psw Amp Dur Poly Recrt Int Pat Comment Right AbdHallucis MedPlantar S1-2 Nml Nml Nml Nml Nml 0 Nml Complete Right AntTibialis Dp Br Peron L4-5 Nml Nml Nml Nml Nml 0 Nml Complete Right PostTibialis Tibial L5, S1 Nml Nml Nml Nml Nml 0 Nml Complete Right MedGastroc Tibial S1-2 Nml Nml Nml Nml Nml 0 Nml Complete Right VastusMed Femoral L2-4 Nml Nml Nml Nml Nml 0 Nml Complete Left AbdHallucis MedPlantar S1-2 Nml Nml Nml Nml Nml 0 Nml Complete Left AntTibialis Dp Br Peron L4-5 Nml Nml Nml Nml Nml 0 Nml Complete Left PostTibialis Tibial L5, S1 Nml Nml Nml Nml Nml 0 Nml Complete Left MedGastroc Tibial S1-2 Nml Nml Nml Nml Nml 0 Nml Complete Left VastusMed Femoral L2-4 Nml Nml Nml Nml Nml 0 Nml Complete FINDINGS: All motor and sensory nerves tested showed normal latencies, amplitudes and conduction velocities. Concentric needle EMG was performed in selected muscles of the bilateral lower extremity. Study did not reveal signs of electric abnormalities as shown in the table below. IMPRESSION: 1. This is a normal study. 2. There is no electrodiagnostic evidence for peroneal neuropathy, tibial neuropathy, lumbosacral plexopathy, lumbar radiculopathy, or peripheral neuropathy. Thank you for your kind referral. Clotilde Stokes MD, DAVID Board Certified, [place] [employer] and [employer] (ABPMR) Board Certified, [place] [employer] Electro[employer]ostic [employer] (ABEM) CODIN 19257 x 2 MTDD
== END 2023-07-11 08:17 | disposition home or self-care (01) ==
LOC: HO.NEURO 08:16
PROVIDERS: PCP Nurse Practitioner Family; Visit Provider Internal Medicine
DX: M54.16 Radiculopathy, lumbar region (principal)
CPT/HCPCS: 95886; 95909

== ENCOUNTER → 2023-07-11 08:19 | Outpatient (BNV) | payer OTHER, SELFPAY | PROVIDERS: PCP Nurse Practitioner Family; Visit Provider Physical Medicine & Rehabilitation | DX: R26.89 Other abnormalities of gait and mobility (principal) | CPT/HCPCS: 95886; 95909 ==

== ENCOUNTER 2023-07-14 12:55 | Outpatient (AMB) | payer OTHER, SELFPAY ==
--- NOTE | 2023-07-14 12:57 | A.OFFVIS_ITS ---
Intake Vital Signs 07/14/23 12:59 Height 5 ft 4 in Weight 178 lb BMI 30.6 BP 128/60 Blood Pressure Location Lt brachial Position Sitting Respiration 12 Pulse 63 Pulse Source Pulse Oximeter Intake Visit Reasons: Follow Up/Increased Pain Allergies carbamazepine [From Tegretol] Adverse Reaction (Intermediate, Verified 07/14/23 13:00) Itching Medication List - Last Reconciled 07/14/23 by Heather Centeno LPN bupropion HCl 300 mg PO QAM duloxetine 30 mg PO BID fluoride (sodium) 1.1% appl PO gabapentin 600 mg PO TID levothyroxine 75 mcg PO DAILY lisinopril-hydrochlorothiazide 20-25 mg 1 tab PO DAILY lorazepam 1 mg PO TID metformin 250 mg PO BID propranolol ER 120 mg PO DAILY simvastatin 10 mg PO BEDTIME trazodone 50 mg PO BEDTIME HPI Follow Up/Increased Pain HPI Details 63-year-old female who presents today to the office for a follow-up. She reports lower back pain radiating from her hips down to her legs, which is getting worse. She also reports swelling in her calf at night, which resolves in the morning. She has difficulty walking and lying down on the bed. She has whole-body pain after walking for more than 20 steps. She has tried ibuprofen and Tylenol. She has some relief from heat and ice compression. She had spent most of her holidays in bed due to pain. She had an MRI scan last year, which is unremarkable. She was started on tizanidine by Dr. Dyson, which provided some relief. She has started taking gabapentin with minimal benefit. She is also frustrated by the amount of copayments for her recent interventional pain treatments and is not interested in further interventions in the hospital setting going forward. Her main complaint today is pain in her lateral thighs overlying the greater trochanters. Past procedures: 04/23/23: Interlaminar epidural steroid injection, L5/S1, Right parasaggita : 75% relief of right leg symptoms. 03/05/23: Right L3 MB Sprint lead placem ent-40-50% pain relief at 35 with no paresthesia, increased to 39 +paresthesia 01/15/23: Left L3 MB Sprint lead placeme nt-70-80% pain relief at 60 with positive paresthesia 12/04/22: Bilateral Diagnostic L3-L4-L5 MBB-100% pain relief for 24 hours. [facility] Medical History Hypertension Kidney stone Intussusception intestine Seizure Fibromyalgia Surgical History S/P placement of nerve stimulator H/O carpal tunnel repair H/O partial thyroidectomy H/O myomectomy H/O: hysterectomy Social History Patient Tobacco Use Status: Former Tobacco user Substance Use Type: Marijuana Review of Systems Const All systems reviewed & are unremarkable except as noted in HPI and below Physical Exam Vital Signs: Last Vital Signs Pulse 63 07/14/23 12:59 Resp 12 07/14/23 12:59 BP 128/60 07/14/23 12:59 BMI result Body Mass Index 30.6 General: Appears afebrile. Alert and oriented. Mood and affect appropriate. Follows and participates in conversation appropriately. Respiratory effort is unlabored. Able to transition from sit to stand unassisted. Ambulates with bilaterally normal heel strike and toe off. Tenderness to palpation overlying bilateral greater trochanters. Tenderness overlying the right sacroiliac joint that is worse with provocative motion. Office Procedures Joint Injection/Drain Joint Injection/Drain Details: Bilateral greater trochanteric bursa injection, ultrasound guided. Primary Site: other (Right greater trochanteric bursa) Secondary Site: other (Left greater trochanteric bursa) Prep: site was prepped using sterile technique Injected: Kenalog, with 3 mL of (0.5% ropivacaine) and other (Around the each of the greater trochanters) Approach Used: other (Lateral approach under ultrasound guidance) Procedure: The patient tolerated the procedure well Coding Details: An ultrasound image of the injection was taken and stored in the permanent record. 71449 - Glenohumeral/Tronchanteric Bursa/Intraarticular (Bilateral, ultrasound) Procedure code (CPT) selection complete Results Reviewed Results Reviewed: 07/11/23: NE electromyogram (EMG); NE nerve conduction velocity FINDINGS: All motor and sensory nerves tested showed normal latencies, amplitudes and conduction velocities. Concentric needle EMG was performed in selected muscles of the bilateral lower extremity. Study did not reveal signs of electric abnormalities as shown in the table below. IMPRESSION: 1. This is a normal study. 2. There is no electrodiagnostic evidence for peroneal neuropathy, tibial neuropathy, lumbosacral plexopathy, lumbar radiculopathy, or peripheral neuropathy. Assessment & Plan Assessment & Plan (1) Greater trochanteric pain syndrome of both lower extremities: Code(s): M25.551 - Pain in right hip; M25.552 - Pain in left hip (2) Vertebrogenic low back pain: Code(s): M54.51 - Vertebrogenic low back pain (3) Sacroiliac joint pain: Code(s): M53.3 - Sacrococcygeal disorders, not elsewhere classified Plan Patient is status post bilateral greater trochanteric bursa injection, ultrasound guided. Patient tolerated procedure well and was discharged home in stable condition with discharge instructions. All questions were answered. The patient will return for follow up next month. If she continues to have pain in right low back/buttock region, we will consider an ultrasound guided right sacroiliac joint injection in the office. Scribed for Dr. Elkins by Frankie Beal, coroner/medical examiner, on 07/14/2023. I, Dr. Elkins, have personally reviewed and agree with the information entered by the scribe. Medications: New tizanidine 4 mg PO BEDTIME PRN 30 caps 0RF muscle spasticity Coding Level of Care Code Est Pt Level 4 (83165) Diagnoses Greater trochanteric pain syndrome of both lower extremities M25.551; M25.552 Vertebrogenic low back pain M54.51 Sacroiliac joint pain M53.3 CPT Codes Coding - Joint 7: 40890 - Glenohumeral/Tronchanteric Bursa/Intraarticular ([id number])
[2023-07-14 12:59] VITALS: BP 128/60; PULSE 63; RESP 12; BMI 30.6
== END 2023-07-14 13:38 | disposition home or self-care (01) ==
PROVIDERS: PCP Nurse Practitioner Family; Visit Provider Internal Medicine
DX: M25.551 Pain in right hip (principal); M25.552 Pain in left hip; M54.51 Vertebrogenic low back pain; M53.3 Sacrococcygeal disorders, not elsewhere classified
CPT/HCPCS: 20611; 99214

== ENCOUNTER → 2023-07-14 12:55 | Outpatient (BNVA) | payer OTHER, SELFPAY | PROVIDERS: PCP Nurse Practitioner Family; Visit Provider Internal Medicine | DX: M25.551 Pain in right hip (principal); M25.552 Pain in left hip; M54.51 Vertebrogenic low back pain; M53.3 Sacrococcygeal disorders, not elsewhere classified | CPT/HCPCS: 20611; J0665; J3301 ==

== ENCOUNTER 2023-08-11 08:57 | Outpatient (AMB) | payer OTHER, SELFPAY ==
--- NOTE | 2023-08-11 09:00 | MHC.OFFVIS ---
Intake Vital Signs 08/11/23 09:02 Height 5 ft 4 in Weight 179 lb BMI 30.7 BP 141/73 H Blood Pressure Location Rt brachial Position Sitting Respiration 12 Pulse 65 Pulse Source Pulse Oximeter Pulse Oximetry (%) 98 Oxygen Delivery Method Room Air Intake Visit Reasons: Right thera SIJ inj/confirmed Allergies carbamazepine [From Tegretol] Adverse Reaction (Intermediate, Verified 08/11/23 09:03) Itching Medication List - Last Reconciled 08/11/23 by Heather Centeno LPN duloxetine 30 mg PO BID fluoride (sodium) 1.1% appl PO levothyroxine 75 mcg PO DAILY lisinopril-hydrochlorothiazide 20-25 mg 1 tab PO DAILY lorazepam 1 mg PO TID metformin 250 mg PO BID propranolol ER 120 mg PO DAILY simvastatin 10 mg PO BEDTIME tizanidine 4 mg PO BEDTIME PRN trazodone 50 mg PO BEDTIME HPI Right thera SIJ inj/confirmed HPI Details 63-year-old female who presents today to the office for bilateral therapeutic SIJ injection. She reports mild low back pain, which is manageable. She has had significant relief from the last injections, which she has not experienced in the last five years. She is able to sleep or walk normally without any pain. She is amenable to receive injections today. Denies any recent cough, cold, infection, fever, or other significant changes in medical history since the last office visit. Past procedures: 07/14/23: Bilateral greater trochanteric bursa injection, ultrasound guided: 80% relief to date. 04/23/23: Interlaminar epidural steroid injection, L5/S1, Right parasaggita : 75% relief of right leg symptoms. 03/05/23: Right L3 MB Sprint lead [id number]-99-14% pain relief at 35 with no paresthesia, increased to 39 +paresthesia 01/15/23: Left L3 MB Sprint lead emxingtmt-54-70% pain relief at 60 with positive paresthesia 12/04/22: Bilateral Diagnostic L3-L4-L5 MBB-100% pain relief for 24 hours. [facility] Medical History Hypertension Kidney stone Intussusception intestine Seizure Fibromyalgia Surgical History S/P placement of nerve stimulator H/O carpal tunnel repair H/O partial thyroidectomy H/O myomectomy H/O: hysterectomy Social History Patient Tobacco Use Status: Former Tobacco user Substance Use Type: Marijuana Review of Systems Const All systems reviewed & are unremarkable except as noted in HPI and below Physical Exam Vital Signs: Last Vital Signs Pulse 65 08/11/23 09:02 Resp 12 08/11/23 09:02 BP 141/73 H 08/11/23 09:02 Pulse Ox 98 08/11/23 09:02 Oxygen Delivery Method Room Air 08/11/23 09:02 BMI result Body Mass Index 30.7 General: Appears afebrile. Alert and oriented. Mood and affect appropriate. Follows and participates in conversation appropriately. Respiratory effort is unlabored. Able to transition from sit to stand unassisted. Ambulates with bilaterally normal heel strike and toe off. Office Procedures Joint Injection/Drain Joint Injection/Drain Details: Bilateral ultrasound guided sacroiliac joint injections The procedure, its benefits, and its risks were explained and written informed consent was obtained from the patient. Immediately prior to starting the procedure, a time-out safety check was conducted. The patient's identification, procedure name, procedure site, and procedure laterality were confirmed with the patient. Ultrasound guidance was used to visualize the sacroiliac joint on the right. The needle was advanced in the plane approach using a curvilinear probe until the sacroiliac ligaments were felt. It was then slid slightly into the joint prior to negative aspiration. 30 milligrams of Kenalog mixed with ropivacaine 0.5% 3 ml amount total was administered into the joint. The same procedure was then repeated on the left side. The patient tolerated the procedure well. Patient denied any lower extremity weakness or numbness. Patient was observed for 30 min and was discharged after fulfilling the standard discharge criteria. Note: An ultrasound image of the injection was taken and stored in the permanent record. Coding 09482 - Sacroiliac (bilateral, ultrasound guided ) Procedure code (CPT) selection complete Results Reviewed Results Reviewed: No imaging is available for review. Assessment & Plan Assessment & Plan (1) Sacroiliac joint pain: Code(s): M53.3 - Sacrococcygeal disorders, not elsewhere classified Plan Patient is status post bilateral ultrasound guided therapeutic sacroiliac joint injections. Patient tolerated procedure well and was discharged home in stable condition with discharge instructions. All questions were answered. We will follow-up in two weeks via telephone or in clinic to assess response to therapy. A follow-up appointment was made during today's visit. Scribed for Dr. Elkins by Frankie Beal, medical technical writer, on 08/11/2023. I, Dr. Elkins, have personally reviewed and agree with the information entered by the scribe. Coding Level of Care Code Procedure Only Diagnoses Sacroiliac joint pain M53.3 CPT Codes Coding - Joint 9: 14127 - Sacroiliac ([id number])
[2023-08-11 09:02] VITALS: BP 141/73; PULSE 65; RESP 12; O2SAT 98; BMI 30.7
== END 2023-08-11 09:33 | disposition home or self-care (01) ==
PROVIDERS: PCP Nurse Practitioner Family; Visit Provider Internal Medicine
DX: M53.3 Sacrococcygeal disorders, not elsewhere classified (principal)
CPT/HCPCS: 27096

== ENCOUNTER → 2023-08-11 08:57 | Outpatient (BNVA) | payer OTHER, SELFPAY | PROVIDERS: PCP Nurse Practitioner Family; Visit Provider Internal Medicine | DX: M53.3 Sacrococcygeal disorders, not elsewhere classified (principal) | CPT/HCPCS: 27096; J2795; J3301 ==

== ENCOUNTER 2023-09-17 08:51 | Outpatient (AMB) | payer OTHER, SELFPAY ==
--- NOTE | 2023-09-17 07:09 | A.OFFVIS_ITS ---
Intake Intake Visit Reasons: Nerve Ablation Allergies carbamazepine [From Tegretol] Adverse Reaction (Intermediate, Verified 08/11/23 09:03) Itching HPI Nerve Ablation HPI Details 63-year-old female who presents today to the office for discussion of ongoing low back pain. She states she had excellent relief from last injection for her lower back pain secondary to sacroiliac joint dysfunction. She has been relatively pain-free up until the last week and has been able to sleep and walk without much difficulty. She continues to have axial discomfort that is worse with prolonged sitting and axial activity including lifting and twisting. She is interested in potentially proceeding with BVN ablation for that component of her pain. She also reports some radicular symptoms in the last few days whereby she feels pain originating in her buttocks extending and radiating down to her thighs. Past procedures: 08/11/23: Bilateral sacroiliac joint inje ction, ultrasound-guided: 90% relief to date 07/14/23: Bilateral greater trochanteric bursa injection, ultrasound guided: 80% relief to date. 04/23/23: Interlaminar epidural steroid injection, L5/S1, Right parasaggita : 75% relief of right leg symptoms. 03/05/23: Right L3 MB Sprint lead placem ent-40-50% pain relief at 35 with no paresthesia, increased to 39 +paresthesia 01/15/23: Left L3 MB Sprint lead placeme nt-70-80% pain relief at 60 with positive paresthesia 12/04/22: Bilateral Diagnostic L3-L4-L5 MBB-100% pain relief for 24 hours. [facility] Medical History Hypertension Kidney stone Intussusception intestine Seizure Fibromyalgia Surgical History S/P placement of nerve stimulator H/O carpal tunnel repair H/O partial thyroidectomy H/O myomectomy H/O: hysterectomy Social History Patient Tobacco Use Status: Former Tobacco user Substance Use Type: Marijuana Review of Systems Const All systems reviewed & are unremarkable except as noted in HPI and below Physical Exam General: Appears afebrile. Alert and oriented. Mood and affect appropriate. Follows and participates in conversation appropriately. Respiratory effort is unlabored. Able to transition from sit to stand unassisted. Results Reviewed Results Reviewed: 11/19/22: XR LUMBOSACRAL SPINE WITH OBLIQUES FINDINGS: There is bony demineralization. As a slight thoracolumbar dextroscoliosis. At L5-S1, there is moderate disc space narrowing, vacuum disc phenomenon and a 3 mm retrolisthesis. The remaining disc spaces are relatively well-maintained. No acute fracture or spondylolisthesis is seen. There is no significant instability with flexion or extension. There is facet arthropathy at L5-S1. No spondylolysis defect is seen on the oblique views. The paravertebral soft tissues are unremarkable. IMPRESSION: 1. At L5-S1, there is moderately severe degenerative disc disease and facet arthropathy. 2. There is no instability with flexion or extension. Assessment & Plan Assessment & Plan (1) Vertebrogenic low back pain: Code(s): M54.51 - Vertebrogenic low back pain (2) Sacroiliac joint pain: Code(s): M53.3 - Sacrococcygeal disorders, not elsewhere classified (3) Lumbar radiculopathy: Code(s): M54.16 - Radiculopathy, lumbar region Plan Once her pain returns towards the sides of her back, we can consider repeating an ultrasound-guided sacroiliac joint injection in 1-2 month from now. She will call to make an appointment. We will initiate AP and request for L5-S1 BVN ablation for modic changes seen on MRI on L5 superior and S1 endplates. She has previously failed facet interventions, epidural injections, oral medications and physical therapy. For her radicular symptoms, recommend trying stretches and home exercise to help relieve some of the nerve irritation that she is having. Scribed for Dr. Elkins by Pushpa Brambila medical logistics specialist, on 09/17/2023. I, Dr. Elkins, have personally reviewed and agree with the information entered by the scribe. Telehealth Telehealth Location of provider rendering services: practice address Location of patient: address on file Patient Identification confirmed using: Name, : Yes Telehealth method: video Patient verbally consented to treatment: Yes Patient verbally consented to billing insurance company: Yes Patient informed of any privacy concerns related to visit: Yes Minutes spent on Phone/Video with Pt.: 12 Coding Level of Care Code Est Pt Level 4 (92073) Diagnoses Vertebrogenic low back pain M54.51 Sacroiliac joint pain M53.3 Lumbar radiculopathy M54.16
== END 2023-09-17 09:37 | disposition home or self-care (01) ==
PROVIDERS: PCP Nurse Practitioner Family; Visit Provider Internal Medicine
DX: M54.51 Vertebrogenic low back pain (principal); M53.3 Sacrococcygeal disorders, not elsewhere classified; M54.16 Radiculopathy, lumbar region
CPT/HCPCS: 99214

== ENCOUNTER → 2023-09-17 08:51 | Outpatient (BNVA) | payer OTHER, SELFPAY | PROVIDERS: PCP Nurse Practitioner Family; Visit Provider Internal Medicine ==

== ENCOUNTER 2023-10-20 08:51 | Outpatient (AMB) | payer OTHER, SELFPAY ==
[2023-10-20 09:06] VITALS: BP 157/65; PULSE 53; RESP 14; O2SAT 96; BMI 30.9
--- NOTE | 2023-10-20 09:06 | A.OFFVIS_ITS ---
Vital Signs 10/20/23 09:06 Height 5 ft 4 in Weight 180 lb BMI 30.9 BP 157/65 H Blood Pressure Location Rt brachial Position Sitting Respiration 14 Pulse 53 Pulse Source Pulse Oximeter Pulse Oximetry (%) 96 Oxygen Delivery Method Room Air Intake Visit Reasons: SOLOMON GTB inj Allergies carbamazepine [From Tegretol] Adverse Reaction (Intermediate, Verified 10/20/23 09:08) Itching Medication List - Last Reconciled 10/20/23 by Heather Centeno LPN duloxetine 30 mg PO ONCE fluoride (sodium) 1.1% appl PO levothyroxine 75 mcg PO DAILY lisinopril-hydrochlorothiazide 20-25 mg 1 tab PO DAILY lorazepam 1 mg PO TID metformin 250 mg PO BID propranolol ER 120 mg PO DAILY simvastatin 10 mg PO BEDTIME tizanidine 4 mg PO BEDTIME PRN trazodone 50 mg PO BEDTIME HPI HPI SOLOMON GTB inj: Details: 63-year-old female who presents today to the office for a bilateral GTB injection. Denies any recent cough, cold, infection, fever or other significant changes in medical history since last office visit. Past procedures: 08/11/23: Bilateral sacroiliac joint injection, ultrasound-guided: 90% relief to date 07/14/23: Bilateral greater trochanteric bursa injection, ultrasound guided: 80% relief to date. 04/23/23: Interlaminar epidural steroid injection, L5/S1, Right parasaggita : 75% relief of right leg symptoms. 03/05/23: Right L3 MB Sprint lead dhrlmpkgo-88-42% pain relief at 35 with no paresthesia, increased to 39 +paresthesia 01/15/23: Left L3 MB Sprint lead waubsbtob-84-57% pain relief at 60 with positive paresthesia 12/04/22: Bilateral Diagnostic L3-L4-L5 MBB-100% pain relief for 24 hours. [facility] Medical History Hypertension Kidney stone Intussusception intestine Seizure Fibromyalgia Surgical History S/P placement of nerve stimulator H/O carpal tunnel repair H/O partial thyroidectomy H/O myomectomy H/O: hysterectomy Social History Patient Tobacco Use Status: Former Tobacco user Substance Use Type: Marijuana Review of Systems Const All systems reviewed & are unremarkable except as noted in HPI and below Physical Exam Vital Signs: Last Vital Signs Pulse 53 10/20/23 09:06 Resp 14 10/20/23 09:06 BP 157/65 H 10/20/23 09:06 Pulse Ox 96 10/20/23 09:06 Oxygen Delivery Method Room Air 10/20/23 09:06 BMI result Body Mass Index 30.9 General: Appears afebrile. Alert and oriented. Mood and affect appropriate. Follows and participates in conversation appropriately. Respiratory effort is unlabored. Able to transition from sit to stand unassisted. Ambulates with bilaterally normal heel strike and toe off. Office Procedures Joint Injection/Drain Joint Injection/Drain Details: Bilateral greater trochanteric bursa injection, ultrasound guided. Primary Site: other (Right greater trochanteric bursa) Secondary Site: other (Left greater trochanteric bursa) Prep: site was prepped using sterile technique Injected: 20 mg of, Kenalog, with 3 mL of (0.5% ropivacaine) and other (Around the each of the greater trochanters) Approach Used: other (Lateral approach under ultrasound guidance) Procedure: The patient tolerated the procedure well Coding Details: An ultrasound image of the injection was taken and stored in the permanent record. - Glenohumeral/Tronchanteric Bursa/Intraarticular (Bilateral, ultrasound guided) Procedure code (CPT) selection complete Results Reviewed Results Reviewed: No imaging is available for review. Assessment & Plan Assessment & Plan (1) Greater trochanteric pain syndrome of both lower extremities: Code(s): M25.551 - Pain in right hip; M25.552 - Pain in left hip Category: Medical Plan Patient is status post bilateral greater trochanteric bursa injection, ultrasound guided. Patient tolerated procedure well and was discharged home in stable condition with discharge instructions. All questions were answered. We will follow-up in two weeks via telephone or in clinic to assess response to therapy. A follow-up appointment was made during today's visit. Scribed for Dr. Elkins by Frankie Beal emergency medical technician/driver, on 10/20/2023. I, Dr. Severo, have personally reviewed and agree with the information entered by the scribe. Coding Level of Care Code Procedure Only Diagnoses Greater trochanteric pain syndrome of both lower extremities M25.551; M25.552 CPT Codes Coding - Joint 7: 78780 - Glenohumeral/Tronchanteric Bursa/Intraarticular ([id number])
== END 2023-10-20 09:51 | disposition home or self-care (01) ==
PROVIDERS: PCP Nurse Practitioner Family; Visit Provider Internal Medicine
DX: M25.551 Pain in right hip (principal); M25.552 Pain in left hip
CPT/HCPCS: 20611

== ENCOUNTER → 2023-10-20 08:51 | Outpatient (BNVA) | payer OTHER, SELFPAY | PROVIDERS: PCP Nurse Practitioner Family; Visit Provider Internal Medicine | DX: M25.551 Pain in right hip (principal); M25.552 Pain in left hip | CPT/HCPCS: 20611; J2795; J3301 ==

== ENCOUNTER 2023-11-05 11:30 | Day surgery (SDC) | payer OTHER, SELFPAY ==
[2023-11-03 10:07] VITALS: BMI 30.9
--- NOTE | 2023-11-04 10:14 | HO.ANESPROP2 ---
Documented by User: Megan Forrest NP 11/04/23 10:15 HPI - Anesthesia Eval Consult details Narrative: 63yo F for L5-S1 Basivertebral Nerve Ablation (Intracept RFA) PMFSH Active Problems Active Problems: All Active Problems Greater trochanteric pain syndrome of both lower extremities (Acute) Vertebrogenic low back pain (Acute) Sacroiliac joint pain (Acute) Lumbar radiculopathy (Acute) Lumbar spondylosis (Acute) Past Medical History Medical History Diabetes Hypertension Kidney stone Intussusception intestine Seizure Fibromyalgia Surgical History Surgical History S/P placement of nerve stimulator H/O carpal tunnel repair H/O partial thyroidectomy H/O myomectomy H/O: hysterectomy Social History Social History Patient Tobacco Use Status: Former Tobacco user Tobacco use type: Cigarette Substance Use Type: Marijuana Advance Directives: No (unknown) Advance Directives Information Provided: Yes Meds Allergies Allergy/AdvReac Type Severity Reaction Status Date / Time carbamazepine [From Tegretol] AdvReac Intermediate Itching Verified 11/05/23 12:51 Home Medications ?Medication ?Instructions ?Recorded ?Confirmed ?Last Taken ?Type levothyroxine 75 mcg capsule 75 mcg PO DAILY 11/19/22 11/05/23 11/05/23 07:00 History propranolol 120 mg capsule,24 120 mg PO DAILY 11/19/22 11/05/23 11/05/23 07:00 History hr,extended release simvastatin 10 mg tablet 10 mg PO BEDTIME 11/19/22 11/05/23 Unknown History fluoride (sodium) 1.1 % dental 1 appl PO DAILY 03/11/23 11/05/23 Unknown History cream lisinopril 20 1 tab PO DAILY 03/11/23 11/05/23 Unknown History mg-hydrochlorothiazide 25 mg tablet lorazepam 1 mg tablet 1 mg PO TID 03/11/23 11/05/23 11/05/23 10:00 History trazodone 50 mg tablet 50 mg PO BEDTIME 03/11/23 11/05/23 Unknown History metformin 500 mg tablet 250 mg PO BID 03/14/23 11/05/23 Unknown History duloxetine 30 mg capsule,delayed 30 mg PO ONCE 10/20/23 11/05/23 11/05/23 07:00 History release Exam Height,Weight and Vital Signs: Height 5 ft 4 in Weight 81.647 kg Assessment and Plan Assessment Anesthesia Assessment: Chart Reviewed Documented by User: Nidia Hillman MD 11/05/23 14:21 [facility] Past Medical History Medical History Diabetes Hypertension Kidney stone Intussusception intestine Seizure Fibromyalgia Surgical History Surgical History S/P placement of nerve stimulator H/O carpal tunnel repair H/O partial thyroidectomy H/O myomectomy H/O: hysterectomy History of Problems with Anesthesia: No Social History Social History Patient Tobacco Use Status: Former Tobacco user Tobacco use type: Cigarette Substance Use Type: Marijuana Advance Directives: No (unknown) Advance Directives Information Provided: Yes Meds Allergies Allergy/AdvReac Type Severity Reaction Status Date / Time carbamazepine [From Tegretol] AdvReac Intermediate Itching Verified 11/05/23 12:51 Home Medications ?Medication ?Instructions ?Recorded ?Confirmed ?Last Taken ?Type levothyroxine 75 mcg capsule 75 mcg PO DAILY 11/19/22 11/05/23 11/05/23 07:00 History propranolol 120 mg capsule,24 120 mg PO DAILY 11/19/22 11/05/23 11/05/23 07:00 History hr,extended release simvastatin 10 mg tablet 10 mg PO BEDTIME 11/19/22 11/05/23 Unknown History fluoride (sodium) 1.1 % dental 1 appl PO DAILY 03/11/23 11/05/23 Unknown History cream lisinopril 20 1 tab PO DAILY 03/11/23 11/05/23 Unknown History mg-hydrochlorothiazide 25 mg tablet lorazepam 1 mg tablet 1 mg PO TID 03/11/23 11/05/23 11/05/23 10:00 History trazodone 50 mg tablet 50 mg PO BEDTIME 03/11/23 11/05/23 Unknown History metformin 500 mg tablet 250 mg PO BID 03/14/23 11/05/23 Unknown History duloxetine 30 mg capsule,delayed 30 mg PO ONCE 10/20/23 11/05/23 11/05/23 07:00 History release Exam Airway Mallampati Class: II TM Dist: >3cm Neck ROM: Full Partial: Upper and Lower Loose/Missing/Broken Teeth: Yes, Upper and Lower Heart: RRR Lungs: CTA Assessment and Plan Assessment Anesthesia Assessment: Anesthesia Plan Discussed Final Anesthetic Review History of Problems with Anesthesia: No NPO: Yes ASA Class: II Final Preanesthetic Review: Meds/Allgs Chart Reviewed, Consent Obtained/Reviewed and Anes Risks/Benef Reviewed Patient Risk: Low Procedure Risk: Low Anesthetic Plan Anesthetic Plan: GA Disposition: Standard PACU
[2023-11-05] VITALS (8 sets, daily range): BP systolic 110–155; BP diastolic 38–84; PULSE 42–79; RESP 14–18; TEMP 36.2–37.4; O2SAT 95–98; BMI 30.2
--- NOTE | ~2023-11-05 | FL_ITS ---
EXAMINATION: XR FLUOROSCOPY WITH IMAGES CLINICAL INFORMATION: L5-S1 basivertebral nerve ablation. COMPARISON: None available. TECHNIQUE: Fluoroscopy Supervised By: Dr. Aba Elkins. Fluoroscopy Time: 2.5 minutes. Cumulative Dose: 66.4 mGy. DAP: 6.50 Gycm2. Images: 9. FINDINGS: Intraoperative fluoroscopy and spot films were performed during a procedure in the OR. Spot films demonstrate a probe at the L5 and S1 levels bilaterally. Please see Dr. Aba Elkins's report for complete details. FL/FL guidance in OR IMPRESSION: Intraoperative fluoroscopy and spot films were obtained. Please see Dr. Aba Elkins's report for complete details.
--- NOTE | 2023-11-05 12:56 | MHC.SHP ---
Pre-Procedural Eval Section A - 24 Hr Update-Section A only Date of Service: 11/05/23 The patient is an INPATIENT: No Changes since office visit: Yes Patient answered all questions The patient has been examined within 24 hours of the surgical procedure. The History & Physical has been completed within 30 days and I have reviewed it.: No Section B - Complete if H&P > 30 days Chief Complaint: Vertebrogenic low back pain Relevant Family History (Specify if Yes): No Relevant Social History: None Present Medications: see Short Stay Collaborative assessment Medical History: No relevant PMH History of Previous Operations: No relevant previous surgery Allergies: Allergies Allergy/AdvReac Type Severity Reaction Status Date / Time carbamazepine [From Tegretol] AdvReac Intermediate Itching Verified 11/05/23 12:51 Review of Systems Sugical H&P ROS: Negative: Constitution, Cardiovascular and Respiratory Exam Surgical H&P Exam: Normal: HEENT, Normal: Heart and Normal: Lungs Plan Diagnosis/Plan: Unchanged I have reviewed the history and physical and performed a pertinent physical examination on my patient. No changes have occurred unless specified. Proceed with planned L5, S1 basivertebral nerve ablation. Possible L3 and L4. Time Spent With Patient Time: Total time managing care of this patient today ____ minutes.
[2023-11-05] MEDS: Lactated Ringers 1,000 ML 100 ML IVCONT (13:24)
[2023-11-05 13:30] LABS: Glucose, Whole Blood 123 mg/dL (60-115)
[2023-11-05 14:36] LABS: MRSA Nasal PCR NEGATIVE (Negative); SA Nasal PCR NEGATIVE (Negative)
--- NOTE | 2023-11-05 16:56 | P.BOP_ITS ---
Brief Operative Note Date of Service: 11/05/23 Pre-op diagnosis: Vertebrogenic low back pain Post-op diagnosis: same Procedure: Basivertebral nerve ablation, L3, L4, L5, S1 (Intracept procedure) Implants: None Surgeon: Aba Elkins MD Anesthesia: GETA Was an Emission Technician used for this Procedure?: No Estimated blood loss (mL): 5 Pathology: none sent Condition: stable Disposition: PACU
--- NOTE | 2023-11-05 16:58 | P.OP_ITS ---
Operative Note Operative Note Date of Service: 11/05/23 Narrative: Basivertebral nerve (BVN) ablation ? Intracept Procedure L3, L4, L5, S1 Procedure Time Out: Patient ID confirmed, correct procedure to be performed, correct site and/or side for procedure as per marked location and correct medication(s), including antibiotic to be used for the procedure. Description of Procedure: After receiving anesthesia in the supine position, the patient was placed prone on the operating room table and all pressure points were appropriately padded. The back was sterilely prepped and draped. The C-arm was sterilely draped and moved into position to visualize the S1 vertebral body in the AP and lateral plane. The C-arm was rotated to a Rios view to square off the superior endplate at S1. The C-arm was then rotated to the right approximately 15-20 degrees for an approach to the right S1 pedicle. The skin entry point was identified and infiltrated with 1% lidocaine using a 25-gauge 1- 1/2 inch needle. A 22-gauge 5-inch spinal needle was used to anesthetize the track to the pedicle and periosteum and confirm the introducer cannula trajectory. A skin incision was made with 15 scalpel blade. The introducer cannula with bevel tip was then introduced through the skin, subcutaneous tissue and paraspinal muscle until bony contact was made. The position was checked in the AP and lateral plane. Using a mallet, the trocar was then advanced through the pedicle to the posterior aspect of the vertebral body using a combination of AP and lateral views to ensure appropriate traversing of the pedicle and no breaching of the pedicle medially. Once the trocar was in the posterior aspect of the S1 vertebral body, the trocar was removed from the cannula and the curved cannula assembly with the nitinol J-stylet was inserted. The spin wheel was rotated counterclockwise permitting excursion of the J-stylet. The curved cannula assembly was then advanced using a mallet in 1-2 mm increments. The J- stylet was observed to traverse the vertebral body in the AP and lateral views. The J-stylet was removed and replaced with the straight stylet to reach the BVN target. Target was reached when the tip of the stylet was 50% anterior of the posterior wall of the S1 in the lateral view (midway between the superior and inferior endplates) and it crossed the midline of the S1 spinous process in the AP view. The stylet was then removed. The bipolar radiofrequency (RF) probe was connected to the generator and then inserted into the introducer cannula in its ablation position. The spin wheel was rotated clockwise to retract the PEEK sleeve to expose the proximal electrode on the radiofrequency probe. The BVN was then ablated using [employer]?s targeted RFG algorithm. While the ablation was occurring at S1, the C-arm was moved to visualize the target at the superolateral aspect of the L5 vertebral body. The C-arm was rotated to square off the superior endplate at L5 and rotated left to obtain an oblique view. The superolateral left L5 pedicle was identified for access. The same process was utilized to place the tip of the cannula 50% anterior of the posterior wall of the L5 in the lateral view (midway between the superior and inferior endplates) and it crossed the midline of the L5 spinous process in the AP view. The stylet was then removed. The bipolar radiofrequency (RF) probe was removed from the previous vertebral body, the tip cleaned and was inserted into the introducer cannula in its ablation position. The spin wheel was rotated clockwise to retract the PEEK sleeve to expose the proximal electrode on the radiofrequency probe. The BVN was then ablated using [employer]?s targeted RFG algorithm. While the ablation was occurring at L5, the C-arm was moved to visualize the target at the superolateral aspect of the L4 vertebral body using the approach similar to the L5 vertebral body. The C-arm was rotated to square off the superior endplate at L4 and rotated approximately to the right to obtain an oblique view. The superolateral right L4 pedicle was identified, and the skin entry point identified. Same steps were followed as for L5. Target was reached when the tip of the stylet was 50% anterior of the posterior wall of the L4 in the lateral view (midway between the superior and inferior endplates) and it crossed the midline of the L4 spinous process in the AP view. The stylet was then removed. The bipolar radiofrequency (RF) probe was removed from the previous vertebral body, the tip cleaned and was inserted into the introducer cannula in its ablation position. The spin wheel was rotated clockwise to retract the PEEK sleeve to expose the proximal electrode on the radiofrequency probe. The BVN was then ablated using [employer]?s targeted RFG algorithm. While the ablation was occurring at L4, the C-arm was moved to visualize the target at the superolateral aspect of the L3 vertebral body. The C-arm was rotated to square off the superior endplate at L3 and rotated left to obtain an oblique view. The superolateral left L3 pedicle was identified for access. The same process was utilized to place the tip of the cannular 50% anterior of the posterior wall of the L3 in the lateral view (midway between the superior and inferior endplates) and it crossed the midline of the L5 spinous process in the AP view. The stylet was then removed. The bipolar radiofrequency (RF) probe was removed from the previous vertebral body, the tip cleaned and was inserted into the introducer cannula in its ablation position. The spin wheel was rotated clockwise to retract the PEEK sleeve to expose the proximal electrode on the radiofrequency probe. The BVN was then ablated using [employer]?s targeted RFG algorithm. With all ablations completed, the instruments were removed from the vertebral bodies. The surgical wounds were closed with a single 0 silk suture for each of the incisions and a sterile dressing was applied. The patient was returned to the supine position and woken up. The patient tolerated the procedure well and was brought to the recovery room. The patient was provided post-op and follow up instructions. Complications: None Estimate Blood Loss: 10 mL
[2023-11-05] MEDS: fentaNYL citrate/PF 100 MCG/2 ML VIAL 25 MCG IVPUSH ×2 (17:18→17:24)
[2023-11-05] MEDS: oxyCODONE HCl Immed Release 5 MG TABLET PO (17:18)
== END 2023-11-05 18:09 | disposition home or self-care (01) ==
PROVIDERS: Registered Nurse Emergency; PCP Nurse Practitioner Family; Visit Provider Internal Medicine
PROC: (CPT 64628; principal; 2023-11-05 13:40)
DX: M54.51 Vertebrogenic low back pain (principal); M53.3 Sacrococcygeal disorders, not elsewhere classified; M54.16 Radiculopathy, lumbar region; M79.7 Fibromyalgia; Z96.82 Presence of neurostimulator; I10 Essential (primary) hypertension; E11.9 Type 2 diabetes mellitus without complications; K56.1 Intussusception; N20.0 Calculus of kidney; Z79.84 Long term (current) use of oral hypoglycemic drugs; Z79.899 Other long term (current) drug therapy; Z88.8 Allergy status to other drugs, medicaments and biological substances; Z87.891 Personal history of nicotine dependence; Z98.890 Other specified postprocedural states
CPT/HCPCS: 64628; 64629 ×2; 82947; 87640; 87641; J0690; J1100; J1596; J2405; J2704; J2795; J3010

== ENCOUNTER → 2023-11-05 11:30 | Outpatient (BNV) | payer OTHER, SELFPAY | PROVIDERS: PCP Nurse Practitioner Family; Visit Provider Internal Medicine | DX: M54.51 Vertebrogenic low back pain (principal) | CPT/HCPCS: 64628; 64629 ==

== ENCOUNTER 2023-11-12 09:19 | Outpatient (AMB) | payer OTHER, SELFPAY ==
[2023-11-12 09:48] VITALS: BP 137/71; PULSE 72; RESP 14; O2SAT 99; BMI 29.9
--- NOTE | 2023-11-12 09:48 | A.OFFVIS_ITS ---
Vital Signs 11/12/23 09:48 Height 5 ft 4 in Weight 174 lb BMI 29.9 BP 137/71 Blood Pressure Location Lt brachial Position Sitting Respiration 14 Pulse 72 Pulse Source Pulse Oximeter Pulse Oximetry (%) 99 Oxygen Delivery Method Room Air Intake Visit Reasons: S/p L5-S1 BVN (Intracept) 11/05/23 Allergies carbamazepine [From Tegretol] Adverse Reaction (Intermediate, Verified 11/12/23 09:49) Itching Medication List - Last Reconciled 11/12/23 by Heather Centeno LPN duloxetine 30 mg PO ONCE fluoride (sodium) 1.1% 1 appl PO DAILY levothyroxine 75 mcg PO DAILY lisinopril-hydrochlorothiazide 20-25 mg 1 tab PO DAILY lorazepam 1 mg PO TID metformin 250 mg PO BID oxycodone-acetaminophen 5-325 mg 1 tab PO BID PRN propranolol ER 120 mg PO DAILY simvastatin 10 mg PO BEDTIME tizanidine 4 mg PO BEDTIME PRN trazodone 50 mg PO BEDTIME HPI HPI S/p L5-S1 BVN (Intracept) 11/05/23: Details: 63-year-old female presents today for status post L5-S1 BVN (Intracept) The patient reports resolution of right-sided pain following the procedure. She continues to have some left-sided soreness and some sciatica type symptoms going down the left thigh and calf. Past procedures: 11/05/23: Basivertebral nerve (BVN) ablation ? Intracept Procedure L3, L4, L5, S1: Resolution of axial low back pain, with persistent left-sided sciatica type symptoms 10/20/23: Bilateral greater trochanteric bursa injection, ultrasound guided: % relief. 08/11/23: Bilateral sacroiliac joint injection, ultrasound-guided: 90% relief to date 07/14/23: Bilateral greater trochanteric bursa injection, ultrasound guided: 80% relief to date. 04/23/23: Interlaminar epidural steroid injection, L5/S1, Right parasaggita : 75% relief of right leg symptoms. 03/05/23: Right L3 MB Sprint lead [id number]% pain relief at 35 with no paresthesia, increased to 39 +paresthesia 01/15/23: Left L3 MB Sprint lead [id number]% pain relief at 60 with positive paresthesia 12/04/22: Bilateral Diagnostic L3-L4-L5 MBB-100% pain relief for 24 hours. [facility] Medical History Diabetes Hypertension Kidney stone Intussusception intestine Seizure Fibromyalgia Surgical History S/P placement of nerve stimulator H/O carpal tunnel repair H/O partial thyroidectomy H/O myomectomy H/O: hysterectomy Social History Patient Tobacco Use Status: Former Tobacco user Tobacco use type: Cigarette Substance Use Type: Marijuana Review of Systems Const All systems reviewed & are unremarkable except as noted in HPI and below Physical Exam Vital Signs: Last Vital Signs Pulse 72 11/12/23 09:48 Resp 14 11/12/23 09:48 BP 137/71 11/12/23 09:48 Pulse Ox 99 11/12/23 09:48 Oxygen Delivery Method Room Air 11/12/23 09:48 BMI result Body Mass Index 29.9 General: Appears afebrile. Alert and oriented. Mood and affect appropriate. Follows and participates in conversation appropriately. Respiratory effort is unlabored. Able to transition from sit to stand unassisted. Her incisions have healed well. All sites are clean and dry and intact. Results Reviewed Results Reviewed: No imaging is available for review Assessment & Plan Assessment & Plan (1) Sacroiliac joint pain: Code(s): M53.3 - Sacrococcygeal disorders, not elsewhere classified Category: Medical (2) Lumbar radiculopathy: Code(s): M54.16 - Radiculopathy, lumbar region Category: Medical (3) Vertebrogenic low back pain: Code(s): M54.51 - Vertebrogenic low back pain Category: Medical Plan I recommend watchful waiting for her left-sided discomfort. It seems like her sacroiliac joint dysfunction has aggravated forming instrumentation comes from the ablation procedure. Symptoms could also be secondary to a transient lumbar radiculitis. If these do not improve or worsen, I will consider a trial of prednisone Dosepak followed by potential SI joint injection in the office or a lumbar transforaminal epidural steroid injection to help with the lumbar radiculitis. Scribed for Dr. Elkins by Pushpa Brambila bilingual medical receptionist, on 08/13/2023. I, Dr. Elkins, have personally reviewed and agree with the information entered by the scribe. Coding Level of Care Code Est Pt Level 4 (76717) Diagnoses Sacroiliac joint pain M53.3 Lumbar radiculopathy M54.16 Vertebrogenic low back pain M54.51
== END 2023-11-12 10:14 | disposition home or self-care (01) ==
PROVIDERS: PCP Nurse Practitioner Family; Visit Provider Internal Medicine
DX: M53.3 Sacrococcygeal disorders, not elsewhere classified (principal); M54.16 Radiculopathy, lumbar region; M54.51 Vertebrogenic low back pain
CPT/HCPCS: 99024

== ENCOUNTER → 2023-11-12 09:19 | Outpatient (BNVA) | payer OTHER, SELFPAY | PROVIDERS: PCP Nurse Practitioner Family; Visit Provider Internal Medicine ==

== ENCOUNTER 2023-12-11 06:13 | Outpatient (REF) | payer OTHER, SELFPAY ==
--- NOTE | ~2023-12-11 | FL_ITS ---
EXAMINATION: XR FLUOROSCOPY WITH IMAGES CLINICAL INFORMATION: Lumbar radiculopathy. COMPARISON: None available. TECHNIQUE: Fluoroscopy Supervised By: Dr. Aba Elkins. Fluoroscopy Time: 0.1 minutes. Cumulative Dose: 3.70 mGy. DAP: 0.0284 Gy-cm2. Images: 2. FINDINGS: Intraoperative fluoroscopy and spot films were performed during a procedure in the OR. Single needle seen overlying the inferior pedicle on the left. The exact level cannot be ascertained secondary to coning of the radiographs. Please correlate with Dr. Aba Elkins' report for complete details. FL/FL guidance in treatment room IMPRESSION: Intraoperative fluoroscopy and spot films were obtained. Please see Dr. Aba Elkins' report for complete details.
== END 2023-12-11 06:14 | disposition home or self-care (01) ==
LOC: CF 06:13
PROVIDERS: Visit Provider Internal Medicine
DX: M54.16 Radiculopathy, lumbar region (principal)
CPT/HCPCS: 64483; 64493; J1010; J1100; Q9967

== ENCOUNTER 2023-12-11 09:59 | Outpatient (AMB) | payer OTHER, SELFPAY ==
--- NOTE | 2023-12-11 10:18 | MHC.OFFVIS ---
Vital Signs 12/11/23 11:15 12/11/23 11:16 Height 5 ft 4 in Weight 174 lb BMI 29.9 BP 124/62 126/76 Blood Pressure Location Lt brachial Lt brachial Position Sitting Sitting Respiration 18 16 Pulse 67 74 Pulse Source Pulse Oximeter Pulse Oximeter Pulse Oximetry (%) 98 97 Oxygen Delivery Method Room Air Room Air Comment Pre-Op Post-Op Intake Visit Reasons: Left L3 TFESI Allergies carbamazepine [From Tegretol] Adverse Reaction (Intermediate, Verified 11/12/23 09:49) Itching HPI HPI Left L3 TFESI: Details: Patient presents for scheduled procedure. Denies any recent cough, cold, infection, fever or other significant changes in medical history since last office visit. [facility] Medical History Diabetes Hypertension Kidney stone Intussusception intestine Seizure Fibromyalgia Surgical History S/P placement of nerve stimulator H/O carpal tunnel repair H/O partial thyroidectomy H/O myomectomy H/O: hysterectomy Social History Patient Tobacco Use Status: Former Tobacco user Tobacco use type: Cigarette Substance Use Type: Marijuana Physical Exam Vital Signs: Last Vital Signs Pulse 74 12/11/23 11:16 Resp 16 12/11/23 11:16 BP 126/76 12/11/23 11:16 Pulse Ox 97 12/11/23 11:16 Oxygen Delivery Method Room Air 12/11/23 11:16 BMI result Body Mass Index 29.9 Assessment & Plan Assessment & Plan (1) Lumbar radiculopathy: Code(s): M54.16 - Radiculopathy, lumbar region Category: Medical Plan Patient is status post left L3 TFESI. Patient tolerated procedure well and was discharged home in stable condition with discharge instructions. All questions were answered. We will follow-up via telephone or in clinic to assess response to therapy. A follow-up appointment was made during today's visit. Orders: Orders FL guidance in treatment room Today M54.16 - Radiculopathy, lumbar region Coding Level of Care Code Procedure Only Diagnoses Lumbar radiculopathy M54.16
[2023-12-11 11:15] VITALS: BP 124/62; PULSE 67; RESP 18; O2SAT 98; BMI 29.9
[2023-12-11 11:16] VITALS: BP 126/76; PULSE 74; RESP 16; O2SAT 97
== END 2023-12-11 11:12 | disposition home or self-care (01) ==
LOC: HO.PMCPRC 09:59
PROVIDERS: PCP Nurse Practitioner Family; Visit Provider Internal Medicine
DX: M47.816 Spondylosis without myelopathy or radiculopathy, lumbar region (principal)
CPT/HCPCS: 64493

== ENCOUNTER 2023-12-22 11:30 | Outpatient (AMB) | payer OTHER, SELFPAY ==
--- NOTE | 2023-12-22 11:31 | A.OFFVIS_ITS ---
Vital Signs 12/22/23 11:34 Height 5 ft 4 in Weight 174 lb BMI 29.9 BP 106/60 Blood Pressure Location Lt brachial Position Sitting Respiration 14 Pulse 88 Pulse Source Pulse Oximeter Pulse Oximetry (%) 97 Oxygen Delivery Method Room Air Intake Visit Reasons: increased pain Allergies carbamazepine [From Tegretol] Adverse Reaction (Intermediate, Verified 12/22/23 11:38) Itching Medication List - Last Reconciled 12/22/23 by Heather Centeno LPN duloxetine 30 mg PO ONCE fluoride (sodium) 1.1% 1 appl PO DAILY levothyroxine 75 mcg PO DAILY lisinopril-hydrochlorothiazide 20-25 mg 1 tab PO DAILY lorazepam 1 mg PO TID metformin 250 mg PO BID oxycodone-acetaminophen 5-325 mg 1 tab PO BID PRN prednisone PO PER PKG DIR propranolol ER 120 mg PO DAILY simvastatin 10 mg PO BEDTIME tizanidine 4 mg PO BEDTIME PRN trazodone 50 mg PO BEDTIME HPI HPI increased pain: Details: 63-year-old female who presents today to the office for increasing GTB pain. She reports soreness in her back and hips. She also reports weakness in her legs. She has difficulty walking. She tried to walk through the grocery store yesterday with her , but she was slow and had to take a couple breaks and just stand there for a few minutes before resuming walking. She reports pain that is on her side and radiates down the lateral aspect of her thigh. Past procedures 12/11/23: Left L3 TFESI: Resolution of left low back and leg sciatica 11/05/23: Basivertebral nerve (BVN) ablation ? Intracept Procedure L3, L4, L5, S1: Resolution of axial low back pain, with persistent left-sided sciatica type symptoms 10/20/23: Bilateral greater trochanteric bursa injection, ultrasound guided: % relief. 08/11/23: Bilateral sacroiliac joint injection, ultrasound-guided: 90% relief to date 07/14/23: Bilateral greater trochanteric bursa injection, ultrasound guided: 80% relief to date. 04/23/23: Interlaminar epidural steroid injection, L5/S1, Right parasaggita : 75% relief of right leg symptoms. 03/05/23: Right L3 MB Sprint lead [id number]% pain relief at 35 with no paresthesia, increased to 39 +paresthesia 01/15/23: Left L3 MB Sprint lead [id number]% pain relief at 60 with positive paresthesia 12/04/22: Bilateral Diagnostic L3-L4-L5 MBB-100% pain relief for 24 hours. [facility] Medical History Diabetes Hypertension Kidney stone Intussusception intestine Seizure Fibromyalgia Surgical History S/P placement of nerve stimulator H/O carpal tunnel repair H/O partial thyroidectomy H/O myomectomy H/O: hysterectomy Social History Patient Tobacco Use Status: Former Tobacco user Tobacco use type: Cigarette Substance Use Type: Marijuana Review of Systems Const All systems reviewed & are unremarkable except as noted in HPI and below Physical Exam Vital Signs: Last Vital Signs Pulse 88 12/22/23 11:34 Resp 14 12/22/23 11:34 BP 106/60 12/22/23 11:34 Pulse Ox 97 12/22/23 11:34 Oxygen Delivery Method Room Air 12/22/23 11:34 BMI result Body Mass Index 29.9 General: Appears afebrile. Alert and oriented. Mood and affect appropriate. Follows and participates in conversation appropriately. Respiratory effort is unlabored. Able to transition from sit to stand unassisted. Ambulates with bilaterally normal heel strike and toe off. Office Procedures Injection Trigger Point Multi Left occipitalis, trapezius and rhomboid trigger point injection. Pre-procedure diagnosis: Myofascial pain Post-procedure diagnosis: Myofascial pain Site and number of trigger points: Left occipitalis Left Trapezius Left Rhomboid Solution: Total volume administered 10 ml (5 ml lidocaine 1% + 5 ml ropivacaine 0.25%). The procedure, its benefits, and its risks were explained to the patient and all questions were answered. A pulse oximeter monitor was attached and the patient was monitored throughout the procedure. Prior to the start of the procedure, a ?time out? was performed to confirm correct patient, procedure, and laterality. Trigger points were identified by manual palpation and marked. The skin was cleaned with Chloraprep. A 1.5 inch 25 G needle was used. Each of the trigger points were approximated and elevated in the direction away from the body. Dry needling then took place for five seconds. Approximately 0.5 ml to 1 ml of injectate was delivered to the trigger point followed by dry needling for five seconds. This process was repeated at each trigger point site. The patient tolerated the procedure well. Post-procedure, breath sounds were equal at both sides of the chest. The patient tolerated the procedure well, without complication. The patient denied any numbness, paresthesias, or weakness. Post-procedure vitals were recorded as part of the nursing discharge note in electronic medical record. Following a period of observation, the patient was discharged in stable condition with written discharge instructions. Trigger Point Multiple: - Trigger point injection =/>3 Joint Injection/Drain Joint Injection/Drain Details: Bilateral greater trochanteric bursa injection, ultrasound guided. Primary Site: other (Right greater trochanteric bursa) Secondary Site: other (Left greater trochanteric bursa) Prep: site was prepped using sterile technique Injected: 20 mg of, Kenalog, with 3 mL of (0.5% ropivacaine) and other (Around the each of the greater trochanters) Approach Used: other (Lateral approach under ultrasound guidance) Procedure: The patient tolerated the procedure well Coding Details: An ultrasound image of the injection was taken and stored in the permanent record. - Glenohumeral/Tronchanteric Bursa/Intraarticular (Bilateral, ultrasound guided) Procedure code (CPT) selection complete Results Reviewed Results Reviewed: No imaging is available for review. Assessment & Plan Assessment & Plan (1) Greater trochanteric pain syndrome of both lower extremities: Code(s): M25.551 - Pain in right hip; M25.552 - Pain in left hip Category: Medical (2) Myofascial pain syndrome, cervical: Code(s): M79.18 - Myalgia, other site Category: Medical Plan Patient is status post bilateral greater trochanteric bursa injection, ultrasound guided and left occipitalis, trapezius and rhomboid trigger point injection. Patient tolerated procedure well and was discharged home in stable condition with discharge instructions. All questions were answered. We will follow-up in two weeks via telephone or in clinic to assess response to therapy. A follow-up appointment was made during today's visit. Scribed for Dr. Elkins by Frankie Emigdio, dental assistant medical assistant, on 12/22/2023. I, Dr. Elkins, have personally reviewed and agree with the information entered by the scribe. Coding Level of Care Code Est Pt Level 4 (92590) Diagnoses Greater trochanteric pain syndrome of both lower extremities M25.551; M25.552 Myofascial pain syndrome, cervical M79.18 CPT Codes Details - Trigger Point Multiple: 64366- Trigger point injection =/>3 ([id number]) Coding - Joint 7: 04010 - Glenohumeral/Tronchanteric Bursa/Intraarticular ([id number])
[2023-12-22 11:34] VITALS: BP 106/60; PULSE 88; RESP 14; O2SAT 97; BMI 29.9
== END 2023-12-22 12:48 | disposition home or self-care (01) ==
LOC: HO.PMC 11:30
PROVIDERS: PCP Nurse Practitioner Family; Visit Provider Internal Medicine
DX: M25.551 Pain in right hip (principal); M25.552 Pain in left hip; M79.18 Myalgia, other site
CPT/HCPCS: 20553; 20611; 99214

== ENCOUNTER → 2023-12-22 11:30 | Outpatient (BNVA) | payer OTHER, SELFPAY | PROVIDERS: PCP Nurse Practitioner Family; Visit Provider Internal Medicine | DX: M79.18 Myalgia, other site (principal); M25.551 Pain in right hip; M25.552 Pain in left hip | CPT/HCPCS: 20553; 20611; J2795; J3301 ==

== ENCOUNTER → 2024-01-09 11:11 | Outpatient (BNVA) | payer OTHER, SELFPAY | PROVIDERS: PCP Nurse Practitioner Family; Visit Provider Internal Medicine ==

== ENCOUNTER 2024-01-09 11:12 | Outpatient (AMB) | payer OTHER, SELFPAY ==
--- NOTE | 2024-01-09 11:12 | MHC.OFFVIS ---
Vital Signs 01/09/24 11:13 Height 5 ft 4 in Weight 174 lb BMI 29.9 BP 139/67 Blood Pressure Location Lt brachial Position Sitting Respiration 14 Pulse 56 Pulse Source Pulse Oximeter Pulse Oximetry (%) 98 Oxygen Delivery Method Room Air Intake Visit Reasons: follow up after procedure Allergies carbamazepine [From Tegretol] Adverse Reaction (Intermediate, Verified 01/09/24 11:14) Itching Medication List - Last Reconciled 01/09/24 by Heather Centeno LPN duloxetine 30 mg PO ONCE fluoride (sodium) 1.1% 1 appl PO DAILY levothyroxine 75 mcg PO DAILY lisinopril-hydrochlorothiazide 20-25 mg 1 tab PO DAILY lorazepam 1 mg PO TID metformin 250 mg PO BID oxycodone-acetaminophen 5-325 mg 1 tab PO BID PRN prednisone PO PER PKG DIR propranolol ER 120 mg PO DAILY simvastatin 10 mg PO BEDTIME tizanidine 4 mg PO BEDTIME PRN trazodone 50 mg PO BEDTIME HPI HPI follow up after procedure: Details: 63-year-old female who presents today to the office for a status post left L3 TFESI. She reports that her back pain has significantly improved but her bursitis pain keeps flaring up. She has been taking ibuprofen for pain, but it has upset her GI. She requested some pain medication for her pain. She reports pain on the procedural site. She has difficulty sleeping at night. She has been using lidocaine patches at night. She has an appointment to start physical therapy in January at [facility]. She has been trying to lose weight. She has been eating healthy diet and lost about 10 lbs. She has tried gabapentin but noticed foam coming out of her mouth at night so she stopped it. Past procedures 12/22/23: Left occipitalis, trapezius and rhomboid trigger point injection: Moderate relief.? 12/22/23: Bilateral greater trochanteric bursa injection, ultrasound guided: No relief. 12/11/23: Left L3 TFESI: Resolution of left low back and leg sciatica 11/05/23: Basivertebral nerve (BVN) ablation ? Intracept Procedure L3, L4, L5, S1: Resolution of axial low back pain, with persistent left-sided sciatica type symptoms 10/20/23: Bilateral greater trochanteric bursa injection, ultrasound guided: % relief. 08/11/23: Bilateral sacroiliac joint injection, ultrasound-guided: 90% relief to date 07/14/23: Bilateral greater trochanteric bursa injection, ultrasound guided: 80% relief to date. 04/23/23: Interlaminar epidural steroid injection, L5/S1, Right parasaggita : 75% relief of right leg symptoms. 03/05/23: Right L3 MB Sprint lead [id number]-18-52% pain relief at 35 with no paresthesia, increased to 39 +paresthesia 01/15/23: Left L3 MB Sprint lead [id number]-20-20% pain relief at 60 with positive paresthesia 12/04/22: Bilateral Diagnostic L3-L4-L5 MBB-100% pain relief for 24 hours. [facility] Medical History Diabetes Hypertension Kidney stone Intussusception intestine Seizure Fibromyalgia Surgical History S/P placement of nerve stimulator H/O carpal tunnel repair H/O partial thyroidectomy H/O myomectomy H/O: hysterectomy Social History Patient Tobacco Use Status: Former Tobacco user Tobacco use type: Cigarette Substance Use Type: Marijuana Review of Systems Const All systems reviewed & are unremarkable except as noted in HPI and below Physical Exam Vital Signs: Last Vital Signs Pulse 56 01/09/24 11:13 Resp 14 01/09/24 11:13 BP 139/67 01/09/24 11:13 Pulse Ox 98 01/09/24 11:13 Oxygen Delivery Method Room Air 01/09/24 11:13 BMI result Body Mass Index 29.9 General: Appears afebrile. Alert and oriented. Mood and affect appropriate. Follows and participates in conversation appropriately. Respiratory effort is unlabored. Able to transition from sit to stand unassisted. Ambulates with bilaterally normal heel strike and toe off. Results Reviewed Results Reviewed: No imaging is available for review. Assessment & Plan Assessment & Plan (1) Greater trochanteric pain syndrome of both lower extremities: Code(s): M25.551 - Pain in right hip; M25.552 - Pain in left hip Category: Medical Plan Prescribed Lyrica 75 mg QHS PO for pain. If she notices no side effects, she can increase the dose for better relief if required. I advised her a trial of exercises for greater trochanteric pain syndrome and to continue physical therapy for three months. If the stretching exercises and physical therapy are not helpful, we can consider PRP injection on both sides or shockwave therapy. I advised the patient to stop taking NSAIDs two weeks before and after the PRP injection. I also recommended that she try natural anti-inflammatory agents like curcumin or OTC herbal supplements. Scribed for Dr. Elkins by Frankie Beal, medical transport specialist, on 01/09/2024. I, Dr. Elkins, have personally reviewed and agree with the information entered by the scribe. Medications: New pregabalin 75 mg PO BID 60 caps 0RF Coding Level of Care Code Est Pt Level 3 (08929) Diagnoses Greater trochanteric pain syndrome of both lower extremities M25.551; M25.552
[2024-01-09 11:13] VITALS: BP 139/67; PULSE 56; RESP 14; O2SAT 98; BMI 29.9
== END 2024-01-09 11:57 | disposition home or self-care (01) ==
PROVIDERS: PCP Nurse Practitioner Family; Visit Provider Internal Medicine
DX: M25.551 Pain in right hip (principal); M25.552 Pain in left hip
CPT/HCPCS: 99213

== ENCOUNTER 2024-03-19 09:40 | Outpatient (AMB) | payer OTHER, SELFPAY ==
--- NOTE | 2024-03-19 09:44 | A.OFFVIS_ITS ---
Vital Signs 03/19/24 09:45 Height 5 ft 4 in Weight 183 lb BMI 31.4 BP 127/70 Blood Pressure Location Lt radial Position Sitting Respiration 15 Pulse 84 Pulse Source Pulse Oximeter Pulse Oximetry (%) 98 Oxygen Delivery Method Room Air Intake Visit Reasons: F/U For Injections Allergies carbamazepine [From Tegretol] Adverse Reaction (Intermediate, Verified 03/19/24 09:47) Itching Medication List - Last Reconciled 03/19/24 by Heather Centeno LPN fluoride (sodium) 1.1% 1 appl PO DAILY levothyroxine 75 mcg PO DAILY lisinopril-hydrochlorothiazide 20-25 mg 1 tab PO DAILY lorazepam 1 mg PO TID metformin 250 mg PO BID pregabalin 75 mg PO BID simvastatin 10 mg PO BEDTIME trazodone 50 mg PO BEDTIME HPI HPI F/U For Injections: Details: 64-year-old female who presents today to the office for follow up for injection. She reports neck and back pain. She reports shooting pain in the back that radiates down to her legs. She states that her pain is worse recently. She also reports shoulder pain. She has been doing home exercises. Sitting or standing for prolonged time worsens the pain. She states that her pain has been worse since last visit. Denies any recent cough, cold, infection, fever or other significant changes in medical history since last office visit.? Past procedures 12/22/23: Left occipitalis, trapezius and rhomboid trigger point injection: Moderate relief.? 12/22/23: Bilateral greater trochanteric bursa injection, ultrasound guided: No relief. 12/11/23: Left L3 TFESI: Resolution of left low back and leg sciatica 11/05/23: Basivertebral nerve (BVN) ablation ? Intracept Procedure L3, L4, L5, S1: Resolution of axial low back pain, with persistent left-sided sciatica type symptoms; symptoms returned 2 months later 10/20/23: Bilateral greater trochanteric bursa injection, ultrasound guided: % relief. 08/11/23: Bilateral sacroiliac joint injection, ultrasound-guided: 90% relief to date 07/14/23: Bilateral greater trochanteric bursa injection, ultrasound guided: 80% relief to date. 04/23/23: Interlaminar epidural steroid injection, L5/S1, Right parasaggital : 75% relief of right leg symptoms. 03/05/23: Right L3 MB Sprint lead ocivuvrzf-89-39% pain relief at 35 with no paresthesia, increased to 39 +paresthesia 01/15/23: Left L3 MB Sprint lead bmcaqaljq-62-00% pain relief at 60 with positive paresthesia 12/04/22: Bilateral Diagnostic L3-L4-L5 MBB-100% pain relief for 24 hours. [facility] Medical History Diabetes Hypertension Kidney stone Intussusception intestine Seizure Fibromyalgia Surgical History S/P placement of nerve stimulator H/O carpal tunnel repair H/O partial thyroidectomy H/O myomectomy H/O: hysterectomy Social History Patient Tobacco Use Status: Former Tobacco user Tobacco use type: Cigarette Substance Use Type: Marijuana Review of Systems Const All systems reviewed & are unremarkable except as noted in HPI and below Physical Exam Vital Signs: Last Vital Signs Pulse 84 03/19/24 09:45 Resp 15 03/19/24 09:45 BP 127/70 03/19/24 09:45 Pulse Ox 98 03/19/24 09:45 Oxygen Delivery Method Room Air 03/19/24 09:45 BMI result Body Mass Index 31.4 General: Appears afebrile. Alert and oriented. Mood and affect appropriate. Follows and participates in conversation appropriately. Respiratory effort is unlabored. Able to transition from sit to stand unassisted. Ambulates with bilaterally normal heel strike and toe off. Straight?leg?raise is?positive?on?both?sides. Office Procedures Injection Trigger Point Multi Pre-procedure diagnosis: Myofascial pain Post-procedure diagnosis: Myofascial pain Site and number of trigger points: Trapezius, bilateral Rhomboid, bilateral Latissimus dorsi, bilateral Solution: Total volume administered 10 ml (ropivacaine 0.25%). The procedure, its benefits, and its risks were explained to the patient and all questions were answered. Prior to the start of the procedure, a ?time out? was performed to confirm correct patient, procedure, and laterality. Trigger points were identified by manual palpation and marked. The skin was cleaned with Chloraprep. A 1.5 inch 25 G needle was used. Each of the trigger points were approximated and elevated in the direction away from the body. Dry needling then took place for five seconds. Approximately 0.5 ml to 1 ml of injectate was delivered to the trigger point followed by dry needling for five seconds. This process was repeated at each trigger point site. The patient tolerated the procedure well. Post-procedure, breath sounds were equal at both sides of the chest. The patient tolerated the procedure well, without complication. The patient de nied any numbness, paresthesias, or weakness. Post-procedure vitals were recorded as part of the nursing discharge note in electronic medical record. Following a period of observation, the patient was discharged in stable condition with written discharge instructions. Trigger Point Multiple: 11436- Trigger point injection =/>3 Results Reviewed Results Reviewed: MRI shows intervertebral disc degeneration at L5-S1 with mild abutment of the exiting nerve roots at that level bilaterally. Assessment & Plan Assessment & Plan (1) Lumbar radiculopathy: Code(s): M54.16 - Radiculopathy, lumbar region Category: Medical Plan 64-year-old female with chronic lumbar radiculopathy that has not responded to conservative management including oral medications, extensive physical therapy, interlaminar epidural steroid injections and transforaminal epidural steroid injections. She also has axial low back pain that has not responded to basivertebral nerve ablation. Discussed spinal cord stimulator as a possible next treatment option for her back pain associated with sciatica. Will place a referral for psychology clearance. Once we have received psychology clearance, we will plan for trial of spinal cord stimulator with a non rechargeable device. The patient will receive a call from [facility] for the psychology assessment. A device brochure was provided to the patient today. Patient is status post trigger point injections. Patient tolerated procedure well and was discharged home in stable condition with discharge instructions.? All questions were answered. We will follow-up in two weeks via telephone or in clinic to assess response to therapy. A follow-up appointment was made during today's visit. Scribed for Dr. Elkins by Frankie Beal, emergency medical tech, on 03/19/2024. I, Dr. Elkins, have personally reviewed and agree with the information entered by the scribe. Coding Level of Care Code Est Pt Level 4 (33613) Diagnoses Lumbar radiculopathy M54.16 CPT Codes Details - Trigger Point Multiple: 55913- Trigger point injection =/>3 ([id number])
[2024-03-19 09:45] VITALS: BP 127/70; PULSE 84; RESP 15; O2SAT 98; BMI 31.4
== END 2024-03-19 10:18 | disposition home or self-care (01) ==
PROVIDERS: PCP Nurse Practitioner Family; Visit Provider Internal Medicine
DX: M54.16 Radiculopathy, lumbar region (principal); M79.18 Myalgia, other site
CPT/HCPCS: 20553; 99214

== ENCOUNTER → 2024-03-19 09:40 | Outpatient (BNVA) | payer OTHER, SELFPAY | PROVIDERS: PCP Nurse Practitioner Family; Visit Provider Internal Medicine | DX: M79.18 Myalgia, other site (principal); M54.16 Radiculopathy, lumbar region | CPT/HCPCS: 20553; J2795 ==

== ENCOUNTER 2025-01-25 10:46 | Outpatient (AMB) | payer OTHER, SELFPAY ==
--- OUTSIDE RECORDS SUMMARY | 2025-01-23 23:59 | XMS_ITS | Continuity of Care Document ---
Author Organization [facility] Address [address] [place] [address]- Care Team Providers Care Shift Boss Name Role Phone Michael ALCARAZ, Courtney Bernstein Primary Care Physician Encounter [facility] Date(s): 12/24/24 - 01/23/25 [facility] [address] [place] [address]- Encounter Type: Triage Allergies, Adverse Reactions, Alerts Substance Criticality Severity Reaction Reaction Severity Status Topamax rash, itching & hair loss Active amLODIPine itching Active Immunizations Given and Recorded Vaccine Date Status Refusal Reason influenza virus vaccine, inactivated 03/17/24 Roland rded influenza virus vaccine, inactivated 03/17/23 Roland rded influenza virus vaccine, inactivated 04/14/22 Roland rded influenza virus vaccine, inactivated 03/23/21 Roland rded influenza virus vaccine, inactivated 03/07/20 Roland rded influenza virus vaccine, inactivated 03/17/18 Roland rded influenza virus vaccine, inactivated 03/16/17 Roland rded SARS-CoV-2(COVID-19)mRNA-LNP vac([id number]) 03/17/24 Recorded SARS-CoV-2(COVID-19)mRNA-LNP vac([id number]) 04/02/23 Recorded RSV vaccine preF3, recombinant 05/26/23 Recorded zoster vaccine, inactivated 11/25/22 Recorded zoster vaccine, inactivated 08/12/22 Recorded zoster vaccine, inactivated 05/16/20 Recorded zoster vaccine, inactivated 01/18/20 Recorded pneumococcal 20-valent conjugate vaccine 1 10/29/22 Given [id number] 12y+ bivalent booster vax 04/20/22 Recorded SARS-CoV-2 mRNA ([id number]) vax 10/05/21 Recorded SARS-CoV-2 (COVID-19) mRNA BNT-162b2 vac 04/12/21 Recorded SARS-CoV-2 (COVID-19) mRNA BNT-162b2 vac 08/28/20 Recorded SARS-CoV-2 (COVID-19) mRNA BNT-162b2 vac 08/08/20 Recorded Influenza Virus Vaccine (oldterm) 04/16/19 Recorde d tetanus/diphtheria/pertussis, acel(Tdap) 06/16/18 Given pneumococcal 23-valent vaccine 03/17/18 Recorded pneumococcal 23-valent vaccine 03/16/17 Recorded pneumococcal 13-valent vaccine 03/17/18 Recorded 1Result Comment: PCV [address] [facility]#[id number] Medications buPROPion 150 mg/24 hours (XL) oral tablet, extended release 1 tablet = 150 mg, By Mouth, Every 24 hours, # 90 tablet, 0 Refills, Maintenance, 01/18/25 8:22:00 AM EDT, ER Tablet, [facility]/pharmacy #[id number], note dose change, 1 tablet By Mouth Every 24 hours, 163, cm, 01/03/25 16:06:00 EDT, Height Start Date: 01/18/25 Status: Ordered Quantity: 90.0 Unit: tablet Repeat number: 1 Indications: Major depressive disorder, recurrent, moderate; FREESTYLE LANCETS MISC FREESTYLE LANCETS MISC, See Instructions, # 100 each, 1 Refills, Maintenance, CHECK BLOOD SUGAR ONCE DAILY, 07/18/22 11:44:00 AM EST, 164, cm, 06/04/22 7:52:00 EST, Height Start Date: 07/18/22 Status: Ordered Quantity: 100.0 Unit: each Repeat number: 1 FREESTYLE LITE TEST STRP FREESTYLE LITE TEST STRP, See Instructions, # 100 Unknown, 3 Refills, Maintenance, CHECK BLOOD SUGAR ONCE DAILY, 07/22/22 3:38:00 PM EST, 164, cm, 06/04/22 7:52:00 EST, Height Start Date: 07/22/22 Status: Ordered Quantity: 100.0 Unit: Unknown Repeat number: 1 hydrochlorothiazide-lisinopril 25 mg-20 mg oral tablet 1 tablet, By Mouth, Daily, # 90 tablet, 1 Refills, Maintenance, 10/01/24 1:10:00 PM EDT, [facility] # 50, 90, 1 tablet By Mouth Daily, 163, cm, 09/09/24 10:19:00 EDT, Height Start Date: 10/01/24 Status: Ordered Quantity: 90.0 Unit: tablet Repeat number: 2 levothyroxine 75 mcg (0.075 mg) oral tablet 1 tablet, By Mouth, Daily, # 90 tablet, 1 Refills, Maintenance, 11/17/24 8:32:00 AM EDT, [facility]/pharmacy #[id number], 163, cm, 11/04/24 9:04:00 EDT, Height Start Date: 11/17/24 Status: Ordered Quantity: 90.0 Unit: tablet Repeat number: 2 Indications: Hypothyroidism, unspecified; LORazepam 1 mg oral tablet 1 tablet = 1 mg, By Mouth, 2 times a day, Auto refill [facility]PAT checked DNF until 01/06/2025, # 60 tablet, 0 Refills, Maintenance, 01/04/25 9:35:00 AM EDT, [facility]/pharmacy #[id number], 01/06/25, 163, cm, 01/04/2516:06:00 EDT, Height Start Date: 01/04/25 Stop Date: 01/04/26 Status: Ordered Quantity: 60.0 Unit: tablet Repeat number: 1 Indications: Generalized anxiety disorder; MetFORMIN (Eqv-Glucophage XR) 500 mg oral tablet, extended release 1 tablet = 500 mg, By Mouth, 2 times a day, # 180 tablet, 1 Refills, Maintenance, 09/09/24 10:38:00 AM EDT, [facility] # 50, note dose decrease, 163, cm, 09/09/24 10:19:00 EDT, Height Start Date: 09/09/24 Status: Ordered Quantity: 180.0 Unit: tablet Repeat number: 2 Misc Rx See Instructions, Refills 0, Maintenance, [facility], 11/26/24 3:11:00 PM EDT, Supply Start Date: 11/26/24 Status: Ordered Repeat number: 1 oxyCODONE 5 mg oral tablet See Instructions, PRN, 1 tablet By Mouth in the AM, PM and 2 tablets by mouth before bed to equal 4tablets ( 20mg daily), # 60 tablet, Refills 0, Tot. Refills 0, Maintenance, for pain, 01/20/25 8:00:00 AM EDT, Instructions Replace Required Details, Route to Pharmacy Electronically, [facility]/pharmacy #[id number], Partial fill upon patient request if the prescription is for a schedule II opioid drug. Auto refi ll [facility]pat check DNF until 09/08/2024, 163, cm, 01/03/25 16:06:00 EDT, Height Start Date: 01/20/25 Status: Ordered Quantity: 60.0 Unit: tablet Repeat number: 1 Indications: Low back pain, unspecified; simvastatin 10 mg oral tablet 1, tablet, By Mouth, Daily at bedtime, # 90 tablet, Refills 3, Tot. Refills 3, Maintenance, :33:00 AM EDT, Route to Pharmacy Electronically, [facility]/pharmacy #[id number], 163, cm, 01/03/25 16:06:00 EDT, Height Start Date: 01/17/25 Status: Ordered Quantity: 90.0 Unit: tablet Repeat number: 4 traZODone 50 mg oral tablet 1, tablet, By Mouth, Daily at bedtime, WITH FOOD., # 30 tablet, Refills 5, Maintenance, 08/10/24 2:29:00 PM EST, Route to Pharmacy Electronically, [facility] # 50, 163, cm, 07/01/24 8:04:00 EST, Height Start Date: 08/10/24 Status: Ordered Quantity: 30.0 Unit: tablet Repeat number: 1 Problem List Condition Confirmation Course Effective Dates Status H ealth Status Informant Vaginal atrophy Confirmed Active Chronic low back pain Confirmed Active Essential hypertension Confirmed Active Fibromyalgia Confirmed Active Generalized anxiety disorder with panic attacks Confirmed Active Stress incontinence Confirmed Active greater trochanteric pain syndrome of both lower extremities Confirmed Active History of seizures 1 Confirmed Active Bilateral hand pain Confirmed Active Familial hyperlipidemia Confirmed Active Hypothyroidism Confirmed Active Insomnia Confirmed Active Displacement of lumbar disc with radiculopathy Confirmed Active Bilateral wrist pain Confirmed Active Pre-diabetes Confirmed Active Major depressive disorder, recurrent, moderate Confirmed Active 1two episodes in 2007. managed with meds in the past by neurology. Tapered off in 2011 Social History Social History Type Response Smoking Status Former smoker, quit more than 30 days ago; Type: Cigarettes; Other: quit 1984 smoked 12 years 1ppd; Total pack years: 12; Started at age: 12; Stopped at age: 24; entered on: 06/16/18 Sex Sex Representation Female (finding) Patient Care team information Care Team Personnel Name: Michael ALCARAZ, Courtney Bernstein Position: [facility] Associate Professional Member Role: PCP Address: [address] [place] [address] Telecom: Care Team Related Persons Name: LEANDRA NATH Insurance Providers Guarantor name: JOSE C NATH Health Plan Information #: 1 Payer: [facility] [facility] Payer Identifier: MARITZA Member Number: [id number] Group Number: [id number] Subscriber Identifier: [id number] Relationship to Subscriber: spouse Coverage Type: NA Coverage Verification Date: NA Telecom: NA Address:
--- OUTSIDE RECORDS SUMMARY | 2025-01-25 11:55 | XMS_ITS | Patient Health Record ---
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
--- OUTSIDE RECORDS SUMMARY | 2025-01-25 11:56 | XMS_ITS | Clinical Summary ---
Author Organization [facility] Address [address] [place] [phone] Phone Care Team Providers Care Travel Agent Name Role Phone Mauro Beavers MD Primary Care Provide r Social History Tobacco Use Types Packs/Day Years Used Date Smoking Tobacco: Never Assessed Education Answer Date Recorded Are you interested in more education? Not on florencia e 10/26/2022 Are you concerned about learning? Not on file 10/26/2022 No 10/26/2022 No 10/26/2022 Digital Access Answer Date Recorded No 11/26/2022 No 11/26/2022 Reliable internet access at home? Not on file 11/26/2022 Device with a working camera? Not on file Comments Unknown Sex and Gender Information Value Date Recorded Sex Assigned at Not on file Legal Sex Female 1:47 PM EST Gender Identity Not on file Sexual Orientation Not on file Plan of Treatment Health Maintenance Due Date Last Done Comments Adult Td,Tdap Booster 1960 LIPID PANEL 1960 DEPRESSION SCREENING 1972 SMOKING Hx and SMOKELESS TOB ACCO SCREENING 1973 HEPATITIS C SCREENING 1978 HIV ONE-TIME SCREENING (18-6 5 YEARS) 1978 PAP SMEAR 1981 MAMMOGRAM 2000 COLOGUARD 2005 COLONOSCOPY 2005 COLORECTAL CANCER SCREENING 2005 FIT TEST 2005 FOBT 2005 SIGMOIDOSCOPY 2005 VIRTUAL COLONOSCOPY 2005 PNEUMOCOCCAL VACCINES (50+ y ears) (1 of 1 - PCV) 2010 ZOSTER VACCINES (1 of 2) 2010 COVID-19 VACCINE (2023-2 5 season) 2024 RSV VACCINE (1 - 1-dose 75+ series) 2035 HEPATITIS A VACCINES Aged Out No long er eligible based on patient's age to complete this topic HIB VACCINES Aged Out No longer eligi ble based on patient's age to complete this topic MENINGOCOCCAL VACCINES (ACWY) Aged Out No longer eligible based on patient's age to complete this topic MENINGOCOCCAL VACCINES (B) Aged Out N o longer eligible based on patient's age to complete this topic Medical Devices Not on file [place] [address] [place] [address] [place] [address] [place] [address] [place] [address] [place] [address] [facility] [place] [address] [place] [address] PCC Care Teams Travel Agent Relationship Specialty Start Date End Date Mauro Beavers MD [address] [place] [id number] PCP - General Internal Medicine 07/23/21 Additional Source Comments The information contained in this document represents components of the legal health record. It is not the complete legal health record.[facility]
[2025-01-25 12:13] VITALS: BP 152/84; PULSE 64; TEMP 36.9; O2SAT 98; BMI 26.7
--- NOTE | 2025-01-25 12:13 | AM.OFFWIN_ITS ---
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 - She reports urinary frequency with uri nation every 15 minutes, worsening over the past few days. - Describes abdominal pressure without b urning sensation during urination, and denies hematuria. - Has urinary incontinence and urgency. - Nausea is present without vomiting or fever. - Chronic lumbar spinal stenosis and bur sitis are noted in her medical history. - She denies fever or chills. - She denies vaginal discharge, bleeding , CP, SOB, n/v/d. Physical Exam General: Cooperative, healthy appearing, comfortable, no acute distress and well developed Cardiac: Normal S1 and S2. RRR, no M/R/G noted. Respiratory: Normal respiratory effort and able to speak in complete sentences. Clear to auscultation bilaterally. No w/r/r noted. Skin: No rashes or lesions noted. GI: Normal inspection. Normal BS noted. Soft, non-distended. TTP of suprapubic region. No guarding or rebound tenderness noted. Back: Negative CVA bilaterally Patient was informed and verbally consented to the use of an ambient scribe for clinic note documentation during this visit. [facility] Medical History Diabetes Hypertension Kidney stone Intussusception intestine Seizure Fibromyalgia Surgical History S/P placement of nerve stimulator H/O carpal tunnel repair H/O partial thyroidectomy H/O myomectomy H/O: hysterectomy Social History Patient Tobacco Use Status: Former Tobacco user Tobacco use type: Cigarette Substance Use Type: Marijuana Patient : No Review of Systems Const All systems reviewed & are unremarkable except as noted in HPI and below Physical Exam Vital Signs: Last Vital Signs Temp 98.4 F 01/25/25 12:13 Pulse 64 01/25/25 12:13 BP 152/84 H 01/25/25 12:13 Pulse Ox 98 01/25/25 12:13 Oxygen Delivery Method Room Air 01/25/25 12:13 BMI result Body Mass Index 26.7 Results AMB Urinalysis, Automated UA Leukoctes 0 Alec/uL Last Edit by Lucy Steinberg MA on 01/25/25 12:45 UA Nitrite Negative Last Edit by Lucy Steinberg MA on 01/25/25 12:45 UA Urobilinogen 0.2 mg/dL Last Edit by Lucy Steinberg MA on 01/25/25 12:45 UA Protein 0 mg/dL Last Edit by Lucy Steinberg MA on 01/25/25 12:45 UA pH 6.0 Last Edit by Lucy Steinberg MA on 01/25/25 12:45 UA Blood 0 Feng/uL Last Edit by Lucy Steinberg MA on 01/25/25 12:45 UA Specific [place] 1.015 Last Edit by Lucy Steinberg MA on 01/25/25 12:45 UA Ketone Negative Last Edit by Lucy Steinberg MA on 01/25/25 12:45 UA Bilirubin 0 mg/dL Last Edit by Lucy Steinberg MA on 01/25/25 12:45 UA Glucose 0 mg/dL Last Edit by Lucy Steinberg MA on 01/25/25 12:45 Results Reviewed Results Reviewed: Laboratory Last Values Urine pH (Auto) 6.0 01/25/25 12:21 Specific [place] (Auto) 1.015 01/25/25 12:21 Urine Protein (Auto) 0 mg/dL 01/25/25 12:21 Glucose (UA)(Auto) 0 mg/dL 01/25/25 12:21 Urine Ketones (Auto) Negative 01/25/25 12:21 Urine Blood (Auto) 0 Feng/uL 01/25/25 12:21 Urine Nitrite (Auto) Negative 01/25/25 12:21 Urine Bilirubin (Auto) 0 mg/dL 01/25/25 12:21 Urine Urobilinogen (Auto) 0.2 mg/dL 01/25/25 12:21 Leukocyte Esterase (Auto) 0 Alec/uL 01/25/25 12:21 Assessment & Plan Assessment & Plan (1) Urinary frequency: Code(s): R35.0 - Frequency of micturition Plan Most likely UTI vs stone UA is negative in the office Plan - Will order urine culture - Drink lots of fluids - Tylenol or Motrin as needed for pain. - Antibiotic therapy initiated with urine culture to confirm infection and guide treatment. - Phenazopyridine prescribed for symptomatic relief of urinary discomfort. - Follow up with PCP Orders: Orders AMB Urinalysis Automated Today Z13.9 - Encounter for screening, unspecified Urine Culture Today N39.0 - Urinary tract infection, site not specified Medications: New cefuroxime axetil 500 mg PO Q12H 10 tabs 0RF phenazopyridine 100 mg PO tid PRN 6 tabs 0RF Pain Coding Level of Care Code Est Pt Level 4 (06143) Diagnoses Urinary frequency R35.0
== END 2025-01-25 12:58 | disposition home or self-care (01) ==
PROVIDERS: PCP Nurse Practitioner Family; Visit Provider Physician Assistant Medical
DX: Z13.9 Encounter for screening, unspecified (principal); R35.0 Frequency of micturition

== ENCOUNTER 2025-01-25 10:46 | Outpatient (REF) | payer OTHER, SELFPAY | END 2025-01-25 10:47 | disposition home or self-care (01) | LOC: HO.LNP 10:46 | PROVIDERS: PCP Nurse Practitioner Family; Visit Provider Physician Assistant Medical | DX: R35.0 Frequency of micturition (principal); R32 Unspecified urinary incontinence; R10.9 Unspecified abdominal pain; R11.0 Nausea; Z13.89 Encounter for screening for other disorder | CPT/HCPCS: 81003; 87086 ==